=== PATIENT | female | born 1950 | race Caucasian/White ===

== ENCOUNTER → 2017-05-12 | Outpatient (CLI) | payer MEDICARE, BC ==
--- NOTE | 2017-05-13 12:01 | MM ---
Reason for exam: screening (asymptomatic). Last mammogram was performed 1 year ago. History: Patient is postmenopausal. Took estrogen for 10 years. Physical Findings: A clinical breast exam by your physician is recommended on an annual basis and results should be correlated with mammographic findings. MG 3D Screening Mammo W/Cad Bilateral CC and MLO view(s) were taken. Prior study comparison: May 03, 2016, bilateral MG 3d screening mammo w/cad. October 08, 2014, bilateral MG diagnostic mammo w CAD ANA. There are scattered fibroglandular densities. No significant changes when compared with prior studies. ASSESSMENT: Benign, BI-RAD 2 RECOMMENDATION: Routine screening mammogram of both breasts in 1 year.
== END | disposition home or self-care (01) ==
LOC: RADMAMWWP 13:34
PROVIDERS: ATTEND Internal Medicine
DX: Z12.31 Encounter for screening mammogram for malignant neoplasm of breast (principal)
CPT/HCPCS: 77063; G0202

== ENCOUNTER → 2018-07-07 | Outpatient (CLI) | payer MEDICARE, BC ==
--- NOTE | 2018-07-17 11:15 | MM ---
Reason for exam: screening (asymptomatic). Last mammogram was performed 1 year and 2 months ago. History: Patient is postmenopausal. Took estrogen for 10 years. Physical Findings: A clinical breast exam by your physician is recommended on an annual basis and results should be correlated with mammographic findings. MG 3D Screening Mammo W/Cad Bilateral CC and MLO view(s) were taken. Prior study comparison: May 12, 2017, bilateral MG 3d screening mammo w/cad. May 03, 2016, bilateral MG 3d screening mammo w/cad. No suspicious abnormality. No significant changes when compared with prior studies. ASSESSMENT: Negative, BI-RAD 1 RECOMMENDATION: Routine screening mammogram of both breasts in 1 year.
== END | disposition home or self-care (01) ==
LOC: RADMAMWWP 10:07
PROVIDERS: ATTEND Internal Medicine
DX: Z12.31 Encounter for screening mammogram for malignant neoplasm of breast (principal)
CPT/HCPCS: 77063; 77067

== ENCOUNTER → 2019-07-27 | Outpatient (CLI) | payer MEDICARE, BC ==
--- NOTE | 2019-07-31 09:14 | MM ---
Reason for exam: screening (asymptomatic). Last mammogram was performed 1 year and 1 month ago. History: Patient is postmenopausal. Took estrogen for 10 years. Physical Findings: A clinical breast exam by your physician is recommended on an annual basis and results should be correlated with mammographic findings. MG 3D Screening Mammo W/Cad Bilateral CC and MLO view(s) were taken. Prior study comparison: July 07, 2018, bilateral MG 3d screening mammo w/cad. May 12, 2017, bilateral MG 3d screening mammo w/cad. There are scattered fibroglandular densities. No suspicious abnormality. No significant changes when compared with prior studies. ASSESSMENT: Negative, BI-RAD 1 RECOMMENDATION: Routine screening mammogram of both breasts in 1 year.
== END | disposition home or self-care (01) ==
LOC: RADMAMWWP 10:15
PROVIDERS: ATTEND Internal Medicine
DX: Z12.31 Encounter for screening mammogram for malignant neoplasm of breast (principal)
CPT/HCPCS: 77063; 77067

== ENCOUNTER → 2019-08-24 | Outpatient (CLI) | payer MEDICARE, BC ==
--- NOTE | 2019-08-26 13:18 | BD ---
EXAMINATION TYPE: Axial Bone Density DATE OF EXAM: 08/24/2019 COMPARISON: 05.25.2016 CLINICAL HISTORY: 69 YR OLD FEMALE....ICD-10 CODE: M81.0 KNOWN OSTEOPOROSIS Height: 62.5 Weight: 179 FRAX RISK QUESTIONS: History of Fracture in Adulthood: YES 3. Menopause before 45: AT AGE 46 RISK FACTORS HISTORY OF: HX OF FOOT FX AT AGE 51 History of Wrist Fracture: RT WRIST FX, AT AGE 35 YRS OLD Surgery to Spine FUSION, L4 AND L5, MAY 07, 2019 Family History of Osteoporosis: YES HER MOTHER Postmenopausal woman: YES AT ABOUT AGE 46 Lost more than 2 inches in height since high school: YES Hyperparathyroidism: NO Adrenal Insufficiency: NO MEDICATIONS: Additional Medications: BP MEDS, ANTIDEPRESSANTS, STATIN FOR CHOLESTEROL, Additional History: HYPERTENSION, CHOLESTEROL EXAM MEASUREMENTS: Bone mineral densitometry was performed using the [employer] System. LUMBAR SPINAL FUSION, SPINE NOT SCANNED Bone mineral density about the R hip (g/cm2): 0.745 Bone mineral density about the L hip (g/cm2): 0.781 T Score values are as follows: -----R Neck: -2.4 -----L Neck: -2.7 -----R Total: -2.1 -----L Total: -1.8 Bone mineral density has: Decreased -6.5% since study of: 05.25.2016 FRAX%s: THERE IS A 23.4% CHANCE FOR A MAJOR OSTEOPOROTIC FX AND A 6.1% FOR HIP.....PROBABILITY FOR FX IN 10 YRS TIME Bone mineral density about the L Wrist (g/cm2): 0.469 T Score values are as follows: -----Dist. R+U: -3.7 -----Prox. R+U: -2.2 -----Radius total: -3.3 Bone mineral density FIRST SCAN OF FOREARM IMPRESSION: Osteoporosis (T Score less than -2.5). There is increased fracture risk and therapy is usually indicated based on age. Re-Screen 1-2 years. NOTE: T-SCORE=SD OF THE YOUNG ADULT MEAN.
== END | disposition home or self-care (01) ==
LOC: RADBDWWP 14:27
PROVIDERS: ATTEND Internal Medicine
DX: M81.0 Age-related osteoporosis without current pathological fracture (principal)
CPT/HCPCS: 77080

== ENCOUNTER → 2019-08-29 | Outpatient (CLI) | payer MEDICARE, BC ==
[~2019-08-29] MED LIST: DENOSUMAB 60 MG/ML 1 ML SYRINGE SQ ONE
[2019-08-29 13:58] VITALS: BP 140/88; PULSE 75; RESP 16; TEMP 97.6
== END ==
LOC: PROCWHC3 13:18
PROVIDERS: ATTEND Internal Medicine
DX: M81.0 Age-related osteoporosis without current pathological fracture (principal)
CPT/HCPCS: 96372; J0897

== ENCOUNTER → 2019-09-11 | Outpatient (CLI) | payer MEDICARE, BC ==
--- NOTE | 2019-09-12 07:36 | US ---
EXAMINATION TYPE: US carotid duplex BILAT DATE OF EXAM: 09/11/2019 COMPARISON: NONE CLINICAL HISTORY: I65.23 Carotid Stenosis. Stenosis, pt has no complaints at this time EXAM MEASUREMENTS: RIGHT: Peak Systolic Velocity (PSV) cm/sec ----- Right CCA: 64.3 ----- Right ICA: 82.2 ----- Right ECA: 77.8 ICA/CCA ratio: 1.3 RIGHT: End Diastole cm/sec ----- Right CCA: 21.5 ----- Right ICA: 28.2 ----- Right ECA: 12.8 LEFT: Peak Systolic Velocity (PSV) cm/sec ----- Left CCA: 66.0 ----- Left ICA: 100.9 ----- Left ECA: 94.1 ICA/CCA ratio: 1.5 LEFT: End Diastole cm/sec ----- Left CCA: 22.3 ----- Left ICA: 40.3 ----- Left ECA: 17.6 VERTEBRALS (direction of flow): Right Vertebral: Antegrade Left Vertebral: Antegrade Rhythm: Normal No significant stenosis seen Some minimal atheromatous plaquing may be within the proximal right internal carotid artery. IMPRESSION: No significant flow-limiting stenosis bilateral carotid bifurcations. Criteria for Assigning % of Stenosis / Diameter reduction (Estimation based on the indirect measurements of the internal carotid artery velocities (ICA PSV). 1. Normal (no stenosis)=ICA PSV < 125 cm/s: ratio < 2.0: ICA EDV<40 cm/s. 2. Less than 50% stenosis=ICA PSV < 125 cm/s: ratio < 2.0: ICA EDV<40 cm/s. 3. 50 to 69% stenosis=ICA PSV of 125 to 230 cm/s: ration 2.0 ? 4.0: ICA EDV 40-100 cm/s. 4. Greater than 70% stenosis to near occlusion= ICA PSV > 230 cm/s: ratio > 4.0: ICA EDV > 100 cm/s. 5. Near occlusion= ICA PSV velocities may be low or undetectable: variable ratio and ICA EDV. 6. Total occlusion=unable to detect flow.
== END | disposition home or self-care (01) ==
LOC: RADUSWWP 16:05
PROVIDERS: ATTEND Internal Medicine
DX: I65.23 Occlusion and stenosis of bilateral carotid arteries (principal)
CPT/HCPCS: 93880

== ENCOUNTER → 2020-04-23 | Outpatient (CLI) | payer MEDICARE, BC ==
[~2020-04-23] MED LIST changes: +DENOSUMAB 60 MG/ML 1 ML SYRINGE SQ NR; -DENOSUMAB 60 MG/ML 1 ML SYRINGE SQ ONE
[2020-04-23 13:57] VITALS: BP 127/74; PULSE 88; RESP 16; TEMP 97.3
== END | disposition home or self-care (01) ==
LOC: PROCWHC3 13:27
PROVIDERS: ATTEND Internal Medicine
DX: M81.0 Age-related osteoporosis without current pathological fracture (principal)
CPT/HCPCS: 96372; J0897

== ENCOUNTER → 2020-04-23 | Outpatient (CLI) | payer MEDICARE, BC ==
[2020-04-23 11:26] LABS: Basophils # (A) 0.1 k/uL (0-0.2); Basophils % (A) 1 %; Eosinophils # (A) 0.2 k/uL (0-0.7); Eosinophils % (A) 3 %; HCT 47.6 % (34.0-46.0); HGB 14.8 gm/dL (11.4-16.0); Hypochromasia Slight; Lymphocytes % (A) 32 %; MCH 28.2 pg (25.0-35.0); MCHC 31.2 g/dL (31.0-37.0); MCV 90.5 fL (80.0-100.0); Mean Platelet Volume 8.7; Monocytes # (A) 0.5 k/uL (0-1.0); Monocytes % (A) 7 %; Neutrophils # (A) 3.4 k/uL (1.3-7.7); Neutrophils % (A) 54 %; Platelet Count 261 k/uL (150-450); RBC 5.26 m/uL (3.80-5.40); RDW 14.1 % (11.5-15.5); WBC 6.3 k/uL (3.8-10.6)
[2020-04-23 15:53] LABS: African American GFR (CKD) 75.6 (60.0-200.0); Albumin 4.5 g/dL (3.80-4.90); Albumin/Globulin Ratio 2.14 (1.60-3.17); Anion Gap 8.4 mmol/L (4.00-12.00); Calcium 9.4 mg/dL (8.7-10.3); Carbon Dioxide 23.6 mmol/L (21.6-31.8); Globulin 2.1 g/dL (1.6-3.3); Non-African American GFR(CKD) 65.2 (60.0-200.0); Potassium 4.4 mmol/L (3.5-5.5); Total Bilirubin 0.5 mg/dL (0.2-1.2); Total Protein 6.6 g/dL (6.2-8.2)
== END | disposition home or self-care (01) ==
LOC: LABWHC1 10:07
PROVIDERS: ATTEND Internal Medicine
DX: I10 Essential (primary) hypertension (principal); E78.2 Mixed hyperlipidemia
CPT/HCPCS: 36415; 80053; 80061; 84443; 85025

== ENCOUNTER → 2020-07-29 | Outpatient (CLI) | payer MEDICARE, BC ==
--- NOTE | 2020-07-30 10:16 | MM ---
Reason for exam: screening (asymptomatic). Last mammogram was performed 1 year ago. History: Patient is postmenopausal. Took estrogen for 10 years. Physical Findings: A clinical breast exam by your physician is recommended on an annual basis and results should be correlated with mammographic findings. MG 3D Screening Mammo W/Cad Bilateral CC and MLO view(s) were taken. Prior study comparison: July 27, 2019, bilateral MG 3d screening mammo w/cad. July 07, 2018, bilateral MG 3d screening mammo w/cad. The breast tissue is heterogeneously dense. This may lower the sensitivity of mammography. There is no discrete abnormality. No significant changes when compared with prior studies. ASSESSMENT: Negative, BI-RAD 1 RECOMMENDATION: Routine screening mammogram of both breasts in 1 year.
== END | disposition home or self-care (01) ==
LOC: RADMAMWWP 10:03
PROVIDERS: ATTEND Internal Medicine
DX: Z12.31 Encounter for screening mammogram for malignant neoplasm of breast (principal)
CPT/HCPCS: 77063; 77067

== ENCOUNTER 2021-04-23 07:34 | Day surgery (SDC) | payer MEDICARE, BC ==
[2021-04-21 12:22] VITALS: BMI 28.6
--- NOTE | 2021-04-23 06:34 | P.GSHP ---
History of Present Illness H&P Date: 04/18/21 Chief Complaint: Right flank discomfort The patient is a 71-year-old white female with a history of urolithiasis. She was recently hospitalized at [facility] with sepsis of urinary origin. A urine culture showed an E. coli UTI. Computed tomography scan showed an 8 mm right distal ureteral calculus, as well as small right renal calculi. She underwent right ureteral stent insertion on 04/01/2021 and has been treated with antibiotics. She now comes for removal of her stent, ureteroscopy with laser lithotripsy. - Constitutional Constitutional: Denies chills, Denies fever - Gastrointestinal Gastrointestinal: Denies nausea, Denies vomiting - Genitourinary (Female) Genitourinary: Reports flank pain, Reports kidney stones Past Medical History Additional Past Medical History / Comment(s): Osteoporosis. Burning Mouth Syndrome History of Any Multi-Drug Resistant Organisms: None Reported Past Surgical History: Hysterectomy, Orthopedic Surgery Additional Past Surgical History / Comment(s): Back surgery - L4/5 fusion. Left great toe cut off at age 14 - reconstruct / Left thigh Skin Graft Past Anesthesia/Blood Transfusion Reactions: No Reported Reaction Past Psychological History: Depression - Past Family History Father Family Medical History: Cancer Medications and Allergies Home Medications Medication Instructions Recorded Confirmed Type Atorvastatin [Lipitor] 20 mg PO DAILY 04/21/21 04/21/21 History Butalb/APAP/Caff 50-325-40Mg 1 tab PO Q4H PRN 04/21/21 04/21/21 History [Fioricet 50-325-40] Clindamycin HCl 300 mg PO Q12HR 04/21/21 04/21/21 History Gabapentin [Neurontin] 400 mg PO QID 04/21/21 04/21/21 History Loratadine [Claritin] 10 mg PO DAILY 04/21/21 04/21/21 History Montelukast [Singulair] 10 mg PO DAILY 04/21/21 04/21/21 History Venlafaxine HCl [Effexor] 75 mg PO DAILY 04/21/21 04/21/21 History lisinopriL [Zestril] 5 mg PO DAILY 04/21/21 04/21/21 History metFORMIN HCL [Glucophage] 500 mg PO AC-SUPPER 04/21/21 04/21/21 History Allergies Allergy/AdvReac Type Severity Reaction Status Date / Time erythromycin base Allergy Rash/Hives Verified 04/21/21 12:00 Penicillins Allergy Rash/Hives Verified 04/21/21 12:00 Surgical - Exam - General well developed, well nourished, no distress - Neck no masses, trachea midline - Respiratory normal respiratory effort - Abdomen Abdomen: soft, non tender, no guarding, no rigid, no rebound - Genitourinary normal external genitalia, normal perineum - Psychiatric oriented to time, oriented to person, oriented to place, speech is normal, memory intact Results - Imaging CT scan - abdomen: report reviewed, image reviewed Assessment and Plan (1) Calculus of kidney Status: Acute Code(s): N20.0 - CALCULUS OF KIDNEY SNOMED Code(s): 84280020 (2) Calculus of ureter Status: Acute Code(s): N20.1 - CALCULUS OF URETER SNOMED Code(s): 80938922 Plan: Cystoscopy, right ureteral stent removal, right ureteroscopy with Holmium laser lithotripsy. The procedure has been reviewed in detail with the patient and her . They are aware of potential risks, which include anesthesia, bleeding, infection, ureteral injury, and inability to remove all calculi.
[~2021-04-23 07:34] MED LIST changes: -DENOSUMAB 60 MG/ML 1 ML SYRINGE SQ NR; +DEXAMETHASONE SOD PHOSPHATE 4 MG/ML 1 ML VIAL IV ONE; +LACTATED RINGERS 1,000 ML IV SCH; +ONDANSETRON 4 MG/2 ML VIAL IVP ONE
[2021-04-23 08:20] LABS: Glucose,Whole Blood 126 mg/dL (75-99)
[2021-04-23] MEDS ORDERED: LIDOCAINE 1% (10MG/ML) FOR IV START INTRADERMA ONE (08:20)
--- NOTE | 2021-04-23 08:20 | XR ---
EXAMINATION TYPE: XR KUB DATE OF EXAM: 04/23/2021 7:46 AM CLINICAL HISTORY: Kidney stones in right kidney and urinary bladder TECHNIQUE: Single supine KUB image of the abdomen is obtained. COMPARISON: 09/18/2013. CT abdomen and pelvis [phone] FINDINGS: Right ureteral stent is seen. There are multiple, at least 4, distal right ureteral calculi with the largest most distal calculus measuring 9 mm. Probable left pelvic phlebolith. Stool and gas obscure visualization of the renal contours. There are likely 2 tiny right renal calculi measuring u p to 2 mm. No definite evidence of left renal calculi or ureteral calculi on the left. Fixation hardw are at L4-5. Degenerative changes of the hips. IMPRESSION: 1. Right ureteral stent with multiple right distal ureteral calcifications (approximately 4) with the largest measuring 9 mm. 2. Stool and gas obscure visualization of the right renal contour. At least 2 tiny 2 mm right uretera l calculi.
[2021-04-23] MEDS ORDERED: NEOSTIGMINE 1 MG/ML 10 ML VIAL ONE (10:04)
[2021-04-23] MEDS ORDERED: ROCURONIUM 10 MG/ML (5 ML VIAL) IV ONE (10:04)
[2021-04-23] MEDS ORDERED: SUCCINYLCHOLINE CHLORIDE 100 MG/5 ML SYR IV ONE (10:04)
[2021-04-23] MEDS ORDERED: KETOROLAC 15 MG/ML 1 ML VIAL ONE (10:04)
[2021-04-23] MEDS ORDERED: PROPOFOL 10 MG/ML 20 ML VIAL IV ONE (10:04)
[2021-04-23] MEDS ORDERED: GLYCOPYRROLATE 0.2 MG/ML 2 ML VIAL ONE (10:04)
[2021-04-23] MEDS ORDERED: fentaNYL (PF) 50 MCG/ML 2 ML AMP ONE (10:04)
[2021-04-23] MEDS ORDERED: LIDOCAINE 1% INJ 10MG/ML (20 ML MDV) ONE (10:04)
[2021-04-23] MEDS ORDERED: MIDAZOLAM 2 MG/2 ML VIAL ONE (10:04)
[2021-04-23] MEDS ORDERED: LACTATED RINGERS 1,000 ML IV ONE (11:15)
--- NOTE | 2021-04-23 11:30 | P.OP ---
Date of Procedure: 04/23/21 Preoperative Diagnosis: Right ureteral calculus, right renal calculi Postoperative Diagnosis: Same Procedure(s) Performed: Cystoscopy, right ureteral stent removal, right ureteroscopy with Holmium laser lithotripsy and stone basketing Anesthesia: TETE Surgeon: Darien Lehman Estimated Blood Loss (ml): 0 IV fluids (ml): 900 Pathology: other (Calculus fragments, sent for chemical analysis) Condition: stable Disposition: PACU Indications for Procedure: The patient is a 71-year-old white female with a history of urolithiasis. She was recently hospitalized at [facility] with sepsis of urinary origin. A urine culture showed an E. coli UTI. Computed tomography scan showed an 8 mm right distal ureteral calculus, as well as small right renal calculi. She underwent right ureteral stent insertion on 04/01/2021 and has been treated with antibiotics. She now comes for removal of her stent, ureteroscopy with laser lithotripsy. Operative Findings: Right distal ureteral calculus, fragmented and removed completely. Multiple small right renal calculi, successfully fragmented. Description of Procedure: The patient was taken to the operating room and placed in the dorsolithotomy position, with legs supported in Shaun stirrups. The external genitalia was prepped and draped sterilely. The 30 lens was used to introduce the 21-St Helenian Batres cystoscopic sheath through the urethra and into the bladder under direct vision. The bladder was examined in its entirety. The distal end of the right ureteral stent was grasped with grasping forceps and removed along with the cystoscope. The Batres semirigid ureteroscope was advanced into the bladder, and the right ureteral orifice was cannulated. The ureteroscope was advanced up to the distal ureteral calculus. The 200 micron Holmium laser probe was passed through the ureteroscope, and lithotripsy was performed. After fragmenting the calculus, all calculus fragments were removed using a 1.9-St Helenian nitinol basket. The semirigid ureteroscope was removed, and the bulla flexible ureteroscope was advanced into the bladder. The right ureteral orifice was cannulated, and the ureteroscope was slowly advanced under direct vision. No residual calculi were seen within the ureter. Each calyx was examined. Multiple small calculi were seen, the largest measuring 3 mm within a mid pole calyx. All were fragmented, leaving no residual calculus fragments exceeding the size of the laser fiber tip. The ureteroscope was slowly withdrawn under direct vision. There was no evidence of ureteral trauma. After removing the ureteroscope, the cystoscope was passed into the bladder and the calculus fragments were removed from the bladder. They were sent for chemical analysis. The patient tolerated the procedure well and was taken to the recovery room in stable condition. [facility] Report: Procedure Acuity: Elective Stone Size and Location: 8 mm, right distal ureter. Ureteral Dilation: No Ureteral Access Sheath Used: No Stone Sent for Analysis: Yes All Stones/Fragments Were Removed with a Basket: Yes Complications: No Preoperative Antibiotics Given: Yes Stent Placed: No Discharge Medications: None
[2021-04-23 11:41] VITALS: TEMP 98.5
[2021-04-23] MEDS: HYDROmorphone 0.5 MG/0.5 ML SYRINGE IVP PRN ×2 (11:55→12:00)
[2021-04-23 12:41] VITALS: BP 1119/61; PULSE 62; RESP 16
== END 2021-04-23 13:19 | disposition home or self-care (01) ==
LOC: OR 07:34
PROVIDERS: ATTEND Urology
DX: N20.2 Calculus of kidney with calculus of ureter (principal); K14.6 Glossodynia; I10 Essential (primary) hypertension; E78.5 Hyperlipidemia, unspecified; E11.9 Type 2 diabetes mellitus without complications; M81.0 Age-related osteoporosis without current pathological fracture; Z98.1 Arthrodesis status; Z89.419 Acquired absence of unspecified great toe; Z98.890 Other specified postprocedural states; F32.9 Major depressive disorder, single episode, unspecified; Z80.9 Family history of malignant neoplasm, unspecified; Z90.710 Acquired absence of both cervix and uterus; Z79.84 Long term (current) use of oral hypoglycemic drugs; Z79.899 Other long term (current) drug therapy; Z88.1 Allergy status to other antibiotic agents; Z88.0 Allergy status to penicillin
CPT/HCPCS: 52353; 82365; 74018; J2250; J1100; J2710; J0690; J2405; J2001; J3010; J1885; J0330; J2704; J1170

== ENCOUNTER → 2021-04-29 | Outpatient (CLI) | payer MEDICARE, BC ==
[~2021-04-29] MED LIST changes: +DENOSUMAB 60 MG/ML 1 ML SYRINGE SQ NR; -DEXAMETHASONE SOD PHOSPHATE 4 MG/ML 1 ML VIAL IV ONE; -LACTATED RINGERS 1,000 ML IV SCH; -ONDANSETRON 4 MG/2 ML VIAL IVP ONE
[2021-04-29 09:55] VITALS: BP 154/90; PULSE 73; RESP 16; TEMP 98.1
== END | disposition home or self-care (01) ==
LOC: PROCWHC3 09:27
PROVIDERS: ATTEND Internal Medicine
DX: M81.0 Age-related osteoporosis without current pathological fracture (principal)
CPT/HCPCS: 96372; J0897

== ENCOUNTER → 2021-09-01 | Outpatient (CLI) | payer MEDICARE, BC ==
--- NOTE | 2021-09-03 10:35 | MM ---
Reason for exam: screening (asymptomatic). Last mammogram was performed 1 year and 1 month ago. History: Patient is postmenopausal. Took estrogen for 10 years. Physical Findings: A clinical breast exam by your physician is recommended on an annual basis and results should be correlated with mammographic findings. MG 3D Screening Mammo W/Cad Bilateral CC and MLO view(s) were taken. Prior study comparison: July 29, 2020, bilateral MG 3d screening mammo w/cad. July 27, 2019, bilateral MG 3d screening mammo w/cad. There are scattered fibroglandular densities. No significant changes when compared with prior studies. ASSESSMENT: Benign, BI-RAD 2 RECOMMENDATION: Routine screening mammogram of both breasts in 1 year.
== END | disposition home or self-care (01) ==
LOC: RADMAMWWP 12:23
PROVIDERS: ATTEND Internal Medicine
DX: Z12.31 Encounter for screening mammogram for malignant neoplasm of breast (principal)
CPT/HCPCS: 77063; 77067

== ENCOUNTER → 2022-04-05 | Outpatient (CLI) | payer MEDICARE, BC ==
[2022-04-05 10:22] VITALS: BP 139/83; PULSE 91; RESP 16; TEMP 98
== END ==
LOC: PROCWHC3 10:00
PROVIDERS: ATTEND Internal Medicine
DX: M81.0 Age-related osteoporosis without current pathological fracture (principal); Z88.0 Allergy status to penicillin; Z88.1 Allergy status to other antibiotic agents
CPT/HCPCS: 96372; J0897

== ENCOUNTER → 2022-09-01 | Outpatient (CLI) | payer MEDICARE, BC ==
--- NOTE | 2022-09-01 11:49 | XR ---
EXAMINATION TYPE: XR chest 2V DATE OF EXAM: 09/01/2022 8:20 AM COMPARISON: None TECHNIQUE: XR chest 2V Frontal and lateral views of the chest. CLINICAL INDICATION:Female, 72 years old with history of R05.3 CHRONIC COUGH; FINDINGS: Lungs/Pleura: There is no evidence of pleural effusion, focal consolidation, or pneumothorax. Pulmonary vascularity: Unremarkable. Heart/mediastinum: Cardiomediastinal silhouette is unremarkable. Musculoskeletal: No acute osseous pathology. IMPRESSION: No acute cardiopulmonary disease/process.
== END | disposition home or self-care (01) ==
LOC: RADXRMAIN 10:59
PROVIDERS: ATTEND Internal Medicine
DX: R05.3 Chronic cough (principal)
CPT/HCPCS: 71046

== ENCOUNTER → 2022-09-09 | Outpatient (CLI) | payer MEDICARE, BC ==
--- NOTE | 2022-09-10 13:26 | MM ---
Reason for Exam: Screening (asymptomatic). Last screening mammogram was performed 12 month(s) ago. Patient History: Menarche at age 14. First Full-Term at age 21. Left ovary removed at age 48. Right ovary removed at age 48. Hysterectomy at age 48. Postmenopausal. Patient has history of breast feeding. Estrogen for 10 years until age 61. Risk Values: Fawn 5 year model risk: 1.6%. NCI Lifetime model risk: 4.3%. Prior Study Comparison: 07/27/2019 Bilateral Screening Mammogram, [facility]. 07/29/2020 Bilateral Screening Mammogram, [facility]. 09/01/2021 Bilateral Screening Mammogram, [facility]. Tissue Density: There are scattered fibroglandular densities. Findings: Analyzed By CAD. There is no suspicious group of microcalcifications or new suspicious mass in either breast. Overall Assessment: Negative, BI-RAD 1 Management: Screening Mammogram of both breasts in 1 year. 1. Patient should continue monthly self breast exams. 2. A clinical breast exam by your physician is recommended on an annual basis. 3. This exam should not preclude additional follow-up of suspicious palpable abnormalities. Electronically signed and approved by: Sandra Crawford M.D. Radiologist
== END | disposition home or self-care (01) ==
LOC: RADMAMWWP 15:41
PROVIDERS: ATTEND Internal Medicine
DX: Z12.31 Encounter for screening mammogram for malignant neoplasm of breast (principal); Z78.0 Asymptomatic menopausal state
CPT/HCPCS: 77063; 77067

== ENCOUNTER → 2023-04-27 | Outpatient (CLI) | payer MEDICARE, BC ==
--- NOTE | 2023-04-27 19:00 | BD ---
EXAMINATION TYPE: Axial Bone Density DATE OF EXAM: 04/27/2023 CLINICAL HISTORY: 73 years old Female. ICD-10 CODE: M81.0 AGE RELATED OSTEOPROSIS Height: 5 ft 4 in Weight: 186 FRAX RISK QUESTIONS: Alcohol (3 or more units per day): no Family History (Parent hip fracture): no Glucocorticoids (More than 3mos): no (Ex: prednisone, prednisolone, methylprednisolone, dexamethasone, and hydrocortisone). History of Fracture in Adulthood: yes Secondary Osteoporosis: 1. Type 1 Diabetes: no 2. Hyperthyroidism: no 3. Menopause before 45: yes 4. Malnutrition: no 5. Chronic liver disease: no Rheumatoid Arthritis: no Current Tobacco Use: no RISK FACTORS HISTORY OF: Surgery to Spine/Hip(right/left)/Wrist (right/left): lumbar surg When: 6 years ago Family History of Osteoporosis: yes Active: yes Diet low in dairy products/other sources of calcium: no Postmenopausal woman: yes Take estrogen and/or progesterone medications: none now Lost more than 2 inches in height since high school: no Frequent falls: no Poor Health: good Hyperparathyroidism: no Adrenal Insufficiency: kidney stones MEDICATIONS: Additional Medications: ozembic, gabapentin, montelukast, mounjoro, myrbetriq,Atorvastatin, loratadin e, venlafaxine, losartan Additional History: EXAM MEASUREMENTS: Bone mineral density about the R hip (g/cm2): 0.694 Bone mineral density about the L hip (g/cm2): 0.713 T Score values are as follows: -----R Neck: -2.5 -----L Neck: -2.3 -----R Total: -1.9 -----L Total: -1.7 Z Score values are as follows: -----R Neck: -0.8 -----L Neck: -0.6 -----R Total: -1.1 -----L Total: -1.0 Bone mineral density has: increased 1.7 % since study of: 2019 Bone mineral density about the L Wrist (g/cm2): 0.499 T Score values are as follows: -----Dist. R+U: -3.9 -----Prox. R+U: -2.1 -----Radius total: -2.9 Z Score values are as follows: -----Dist. R+U: -1.9 -----Prox. R+U: -0.1 -----Radius total: -0.9 Bone mineral density has: increased 1.6 % since study of: 2019 FRAX%s: The graph provided illustrates a 22.6% chance for a major osteoporotic fx and a 5.9 % chance for the hips probability for fx in 10 years time. IMPRESSION: Osteoporosis (T Score less than -2.5). There is increased fracture risk and therapy is usually indicated based on age. Re-Screen 1-2 years. NOTE: T-SCORE=SD OF THE YOUNG ADULT MEAN.
== END | disposition home or self-care (01) ==
LOC: RADBDWWP 16:13
PROVIDERS: ATTEND Internal Medicine
DX: M81.0 Age-related osteoporosis without current pathological fracture (principal); M85.89 Other specified disorders of bone density and structure, multiple sites
CPT/HCPCS: 77080

== ENCOUNTER → 2023-07-06 | Outpatient (CLI) | payer MEDICARE, BC ==
[2023-07-06 13:27] VITALS: BP 136/73; PULSE 75; RESP 15; TEMP 97.4
== END ==
LOC: PROCWHC3 13:17
PROVIDERS: ATTEND Internal Medicine
DX: M81.0 Age-related osteoporosis without current pathological fracture (principal)
CPT/HCPCS: 96372; J0897

== ENCOUNTER → 2023-09-12 | Outpatient (CLI) | payer MEDICARE ==
--- NOTE | 2023-09-14 09:18 | MM ---
Reason for Exam: Screening (asymptomatic). Last screening mammogram was performed 12 month(s) ago. Patient History: Menarche at age 14. First Full-Term at age 21. Left ovary removed at age 48. Right ovary removed at age 48. Hysterectomy at age 48. Postmenopausal. Patient has history of breast feeding. Estrogen for 10 years until age 61. Risk Values: Fawn 5 year model risk: 1.6%. NCI Lifetime model risk: 4.1%. Prior Study Comparison: 07/29/2020 Bilateral Screening Mammogram, [facility]. 09/01/2021 Bilateral Screening Mammogram, [facility]. 09/09/2022 Bilateral MG 3D screening mammo w/cad, [facility]. Tissue Density: The breast tissue is heterogeneously dense. This may lower the sensitivity of mammography. Findings: Analyzed By CAD. There is no suspicious group of microcalcifications or new suspicious mass in either breast. Overall Assessment: Benign, BI-RAD 2 Management: Screening Mammogram of both breasts in 1 year. . Patient should continue monthly self-breast exams. A clinical breast exam by your physician is recommended on an annual basis. This exam should not preclude additional follow-up of suspicious palpable abnormalities. Note on Fawn scores and lifetime risk: 1. A Fawn score greater than 3% is considered moderate risk. If this is the case, consider specialist referral to assess eligibility for a risk reducing agent. 2. If overall lifetime risk for the development of breast cancer is 20% or higher, the patient may qualify for future screening with alternating mammogram and breast MRI. Electronically signed and approved by: Amando Mata M.D. Radiologis
== END | disposition home or self-care (01) ==
LOC: RADMAMWWP 10:07
PROVIDERS: ATTEND Internal Medicine
DX: Z12.31 Encounter for screening mammogram for malignant neoplasm of breast (principal); Z78.0 Asymptomatic menopausal state
CPT/HCPCS: 77063; 77067

== ENCOUNTER → 2024-03-22 | Outpatient (CLI) | payer MEDICARE ==
--- NOTE | 2024-03-27 17:30 | CT ---
EXAMINATION TYPE: CT abdomen pelvis wo con CT DLP: 1064 mGycm, Automated exposure control for dose reduction was used. DATE OF EXAM: 03/22/2024 12:58 PM COMPARISON: CT abdomen pelvis most recent from CLINICAL INDICATION:Female, 74 years old with history of R10.9 UNSPECIFIED ABDOMINAL PAIN; RIGHT FLAN K PAIN TECHNIQUE: Axial CT abdomen pelvis wo con;Sagittal and coronal reformats were created on a separate workstation. Contrast used: mL of , (none if empty) Oral contrast used: without Oral Contrast (none if empty) FINDINGS: LOWER CHEST: Unremarkable ABDOMEN LIVER: Benign-appearing right lobe liver cyst GALLBLADDER AND BILE DUCTS: Unremarkable. PANCREAS: Unremarkable. SPLEEN: Unremarkable. ADRENAL GLANDS: Unremarkable. KIDNEYS AND URETERS: No evidence of hydronephrosis. There are 4 small left nephroliths. The ureters a re unremarkable. Streak metal artifact obscures distal third of the ureters. PELVIS BLADDER: Unremarkable Several phleboliths identified. REPRODUCTIVE: Unremarkable. ABDOMEN & PELVIS STOMACH AND BOWEL: Stomach and duodenum are unremarkable. No evidence of bowel obstruction. PERITONEUM/RETROPERITONEUM: No evidence of pneumoperitoneum or free fluid. VASCULATURE: No evidence of aortic aneurysm. MUSCULOSKELETAL: No acute osseous abnormalities LYMPH NODES: No gross evidence for lymphadenopathy. SOFT TISSUE/ABDOMINAL WALL: Unremarkable IMPRESSION: 1. There are 4 small left nephroliths. No right kidney calculi identified. 2. No definite evidence of obstructive uropathy or acute process otherwise.
== END | disposition home or self-care (01) ==
LOC: RADCTMAIN 12:32
PROVIDERS: ATTEND Internal Medicine
DX: N20.0 Calculus of kidney (principal)
CPT/HCPCS: 74176

== ENCOUNTER → 2024-08-15 | Outpatient (CLI) | payer MEDICARE ==
[2024-08-15 14:02] VITALS: BP 149/88; PULSE 86; RESP 16; TEMP 97.8
[2024-08-15] MEDS: DENOSUMAB 60 MG/ML 1 ML SYRINGE SQ ONE (14:03)
== END | disposition home or self-care (01) ==
LOC: PROCWHC3 13:53
PROVIDERS: ATTEND Internal Medicine
DX: M81.0 Age-related osteoporosis without current pathological fracture (principal)
CPT/HCPCS: 96372; J0897

== ENCOUNTER → 2024-09-13 | Outpatient (CLI) | payer MEDICARE ==
--- NOTE | 2024-09-13 10:56 | MM ---
Reason for Exam: Screening (asymptomatic). Last screening mammogram was performed 12 month(s) ago. Patient History: Menarche at age 14. First Full-Term at age 21. Left ovary removed at age 48. Right ovary removed at age 48. Hysterectomy at age 48. Postmenopausal. Patient has history of breast feeding. Estrogen for 10 years until age 61. Risk Values: Fawn 5 year model risk: 1.6%. NCI Lifetime model risk: 3.9%. Prior Study Comparison: 09/01/2021 Bilateral Screening Mammogram, [facility]. 09/09/2022 Bilateral MG 3D screening mammo w/cad, [facility]. 09/12/2023 Bilateral MG 3D screening mammo w/cad, [facility]. Tissue Density: The breasts are heterogeneously dense, which may obscure small masses. Findings: Analyzed By CAD. There is no suspicious group of microcalcifications or new suspicious mass in either breast. Overall Assessment: Benign, BI-RAD 2 Management: Screening Mammogram of both breasts in 1 year. . Patient should continue monthly self-breast exams. A clinical breast exam by your physician is recommended on an annual basis. This exam should not preclude additional follow-up of suspicious palpable abnormalities. Note on Fawn scores and lifetime risk: 1. A Fawn score greater than 3% is considered moderate risk. If this is the case, consider specialist referral to assess eligibility for a risk reducing agent. 2. If overall lifetime risk for the development of breast cancer is 20% or higher, the patient may qualify for future screening with alternating mammogram and breast MRI. [facility], , 09/13/2024 10:53 AM. Electronically signed and approved by: Eligio Garner M.D. Radiologis
== END | disposition home or self-care (01) ==
LOC: RADMAMWWP 09:51
PROVIDERS: ATTEND Internal Medicine
CPT/HCPCS: 77063; 77067

== ENCOUNTER → 2025-04-15 | Outpatient (CLI) | payer MEDICARE ==
[2025-04-15] MEDS: DENOSUMAB 60 MG/ML 1 ML SYRINGE SQ NR (13:16)
[2025-04-15 13:18] VITALS: BP 147/74; PULSE 83; RESP 16; TEMP 97.6
== END ==
LOC: PROCWHC3 13:01
PROVIDERS: ATTEND Internal Medicine
DX: M81.0 Age-related osteoporosis without current pathological fracture (principal)
CPT/HCPCS: 96372; J0897

== ENCOUNTER → 2025-06-10 | Outpatient (CLI) | payer MEDICARE ==
--- NOTE | 2025-06-10 17:47 | XR ---
EXAMINATION TYPE: XR KUB DATE OF EXAM: 06/10/2025 1:30 PM COMPARISON: 04/23/2021 CLINICAL INDICATION: Female, 75 years old with history of R10.9 UNSPECIFIED ABDOMINAL PAIN; PHH, pain TECHNIQUE: One radiographic view of the abdomen was obtained. FINDINGS: Moderate stool burden. No dilated small bowel loops. L4-L5 posterior and interbody lumbar f usion. Multiple pelvic phleboliths. Lung bases are clear. IMPRESSION: Multiple pelvic phleboliths. Moderate stool burden. Nonobstructive bowel gas pattern. [facility], Workstation: [facility], 06/10/2025 5:45 PM
== END | disposition home or self-care (01) ==
LOC: RADXRMAIN 13:10
PROVIDERS: ATTEND Internal Medicine
DX: R10.9 Unspecified abdominal pain (principal); I87.8 Other specified disorders of veins
CPT/HCPCS: 74018

== ENCOUNTER → 2025-06-19 | Outpatient (CLI) | payer MEDICARE ==
--- NOTE | 2025-06-19 14:26 | US ---
EXAMINATION TYPE: US carotid duplex BILAT DATE OF EXAM: 06/19/2025 COMPARISON: US CLINICAL INDICATION: Female, 75 years old with history of I65.23 CAROTID STENOSIS; Stenosis Additional History: .... TECHNIQUE: Grayscale, color Doppler and spectral Doppler evaluation of the bilateral carotid systems and vertebral arteries. Indirect Doppler criteria was utilized. FINDINGS: EXAM MEASUREMENTS: RIGHT: Peak Systolic Velocity (PSV) cm/sec ----- Right CCA: 95.2 ----- Right ICA: 73.8 ----- Right ECA: 87.5 ICA/CCA ratio: 0.8 RIGHT: End Diastole cm/sec ----- Right CCA: 20.4 ----- Right ICA: 25.8 ----- Right ECA: 13.8 LEFT: Peak Systolic Velocity (PSV) cm/sec ----- Left CCA: 70.3 ----- Left ICA: 113.4 ----- Left ECA: 107.3 ICA/CCA ratio: 1.6 LEFT: End Diastole cm/sec ----- Left CCA: 18.8 ----- Left ICA: 50.0 ----- Left ECA: 18.2 VERTEBRALS (direction of flow): Right Vertebral: Antegrade Left Vertebral: Antegrade Rhythm: Normal [employer] NOTES: No significant stenosis seen Color Doppler imaging shows patency with blood flow throughout the carotid artery. Spectral waveforms are within normal limits. IMPRESSION: No significant flow-limiting stenosis based on velocities. Some minimal plaquing is in the left carot id bulb. Criteria for Assigning % of Stenosis / Diameter reduction (Estimation based on the indirect measurements of the internal carotid artery velocities (ICA PSV). 1. Normal (no stenosis)=ICA PSV < 180 cm/s: ratio < 2.0: ICA EDV<40 cm/s. 2. Less than 50% stenosis=ICA PSV < 180 cm/s: ratio < 2.0: ICA EDV<40 cm/s. 3. 50 to 69% stenosis=ICA PSV of 180 to 230 cm/s: ration 2.0 ? 4.0: ICA EDV 40-100 cm/s. PSV 125-180 cm/sec and ICA/CCA PSV Ratio ? 2.0 is also consistent with 50-69% stenosis 4. Greater than 70% stenosis to near occlusion= ICA PSV > 230 cm/s: ratio > 4.0: ICA EDV > 100 cm/s. 5. Near occlusion= ICA PSV velocities may be low or undetectable: variable ratio and ICA EDV. 6. Total occlusion=unable to detect flow. [facility], Workstation: [facility], 06/19/2025 2:24 PM
--- NOTE | 2025-06-20 13:53 | CA ---
Transthoracic Echo Report Name: Jordana Jo Age: 75 Gender: F : 1950 Exam Date: 06/19/2025 13:04 Exam Location: [facility] Ht (in): 65 Wt (lb): 183 Ordering Physician: Antwan Medina MD Attending/Referring Phys: Director Emergency Aviva Moreno RDCS Procedure CPT: Indications: I34.0 mitral valve regurgition Cardiac Hx: Technical Quality: Fair Contrast 1: Total Dose (mL): Contrast 2: Total Dose (mL): MEASUREMENTS (Male / Female) Normal Values 2D ECHO LV Diastolic Diameter PLAX 3.3 cm 4.2 - 5.9 / 3.9 - 5.3 cm LV Systolic Diameter PLAX 2.3 cm IVS Diastolic Thickness 1.1 cm 0.6 - 1.0 / 0.6 - 0.9 cm LVPW Diastolic Thickness 1.2 cm 0.6 - 1.0 / 0.6 - 0.9 cm LV Relative Wall Thickness 0.7 RV Internal Dim ED PLAX 3.0 cm LA Systolic Diameter LX 3.3 cm 3.0 - 4.0 / 2.7 - 3.8 cm LV Diastolic Volume MOD BP 50.5 cm??? 67 - 155 / 56 - 104 cm??? LV Systolic Volume MOD BP 17.7 cm??? 22 - 58 / 19 - 49 cm??? LV Ejection Fraction MOD BP 64.9 % >= 55 % LV Cardiac Index MOD BP 1094.3 cm???/min???m??? LV Diastolic Volume MOD 4C 50.3 cm??? LV Systolic Volume MOD 4C 15.9 cm??? LV Ejection Fraction MOD 4C 68.3 % LV Cardiac Index MOD 4C 1146.1 cm???/min???m??? LV Diastolic Length 4C 8.0 cm LV Systolic Length 4C 5.8 cm LV Diastolic Volume MOD 2C 43.8 cm??? LV Systolic Volume MOD 2C 19.2 cm??? LV Ejection Fraction MOD 2C 56.2 % LV Cardiac Index MOD 2C 821.5 cm???/min???m??? LV Diastolic Length 2C 6.8 cm LV Systolic Length 2C 6.2 cm M-MODE Aortic Root Diameter MM 3.2 cm AV Cusp Separation MM 1.6 cm DOPPLER AV Peak Velocity 134.1 cm/s AV Peak Gradient 7.2 mmHg AV Mean Velocity 94.6 cm/s AV Mean Gradient 3.8 mmHg AV Velocity Time Integral 23.4 cm LVOT Peak Velocity 118.2 cm/s LVOT Peak Gradient 5.6 mmHg LVOT Velocity Time Integral 21.7 cm MV Area PHT 2.4 cm??? Mitral E Point Velocity 50.6 cm/s Mitral A Point Velocity 75.2 cm/s Mitral E to A Ratio 0.7 MV Deceleration Time 312.8 ms TR Peak Velocity 205.6 cm/s TR Peak Gradient 16.9 mmHg Right Ventricular Systolic Press 21.9 mmHg FINDINGS Left Ventricle Left ventricular ejection fraction is estimated at 55-60 %. Left ventricular cavity size normal. Mildly increased septal wall thickness. Mildly increased posterior wall thickness. Normal left ventricular wall motion. Right Ventricle Normal right ventricular size. Right ventricular systolic pressure within normal limits. Right Atrium Normal right atrial size. No right atrial thrombus or mass seen. Left Atrium Normal left atrial size. No left atrial thrombus or mass present. Mitral Valve Structurally normal mitral valve. No mitral stenosis, regurgitation or prolapse. Aortic Valve Trileaflet aortic valve. No aortic valve stenosis or regurgitation. Tricuspid Valve Structurally normal tricuspid valve. Trace to mild tricuspid regurgitation. Pulmonic Valve Pulmonic valve not well visualized. Trace pulmonic regurgitation. Pericardium No pericardial effusion. small amount of epicardial fat noticed Aorta Normal size aortic root and proximal ascending aorta. CONCLUSIONS LVEF 55% Mild concentric LVH No obvious regional wall motion abnormality Normal RV size and systolic function No significant valvular dysfunction Previewed by: Dr Jeff Wilson (Electronically Signed) Final Date: 19 June 2025 18:27
== END | disposition home or self-care (01) ==
LOC: RADECHMAIN 12:51
PROVIDERS: ATTEND Internal Medicine
DX: I34.0 Nonrheumatic mitral (valve) insufficiency (principal); M81.0 Age-related osteoporosis without current pathological fracture; I65.23 Occlusion and stenosis of bilateral carotid arteries; I07.1 Rheumatic tricuspid insufficiency
CPT/HCPCS: 93306; 93880

== ENCOUNTER 2025-06-24 14:53 | Observation (INO) | payer MEDICARE ==
--- NOTE | 2025-06-24 15:14 | ED ---
Abdominal Pain HPI - General Chief Complaint: Abdominal Pain Stated Complaint: Urogenital Time Seen by Provider: 06/24/25 14:59 Source: patient, RN notes reviewed Mode of arrival: ambulatory Limitations: no limitations - History of Present Illness Initial Comments: This is a 75-year-old female who presents to the emergency department for abdominal pain. States that on 05/28 she began experiencing suprapubic pain. She feels fine in the morning and then as the day progresses and she is up walking around the pain gets worse. Pain is not prominent when she is laying down, only when she is moving around. She followed up with her PCP when this first began. She was told that she had a UTI and she was very constipated. She cleaned out the constipation and took antibiotics for the UTI. When she followed back up she was told that the urine was clear. However, she continues to be in pain. She does still have pain when she urinates, but states that it is worse when she is moving. Her PCP did a pelvic exam and was worried that the problems were related to her bladder. They ordered an ultrasound of the bladder, however states that she is unable to wait due to the pain, prompting her to come here for evaluation. Denies any nausea or vomiting associated with this. Denies any fevers/chills. MD Complaint: abdominal pain - Related Data Home Medications Medication Instructions Recorded Confirmed Loratadine [Claritin] 10 mg PO HS 04/21/21 06/24/25 Montelukast [Singulair] 10 mg PO DAILY 04/21/21 06/24/25 Atorvastatin [Lipitor] 40 mg PO DAILY 06/24/25 06/24/25 Dulaglutide [Trulicity] 3 mg SQ ARIAS 06/24/25 06/24/25 EPINEPHrine (Auto Inject) [Epipen] 0.3 mg IM ONCE PRN 06/24/25 06/24/25 Erenumab-Aooe [Aimovig 140 mg SQ Q30D 06/24/25 06/24/25 Autoinjector] Ezetimibe [Zetia] 10 mg PO DAILY 06/24/25 06/24/25 Losartan [Cozaar] 50 mg PO DAILY 06/24/25 06/24/25 Mirabegron [Myrbetriq] 25 mg PO HS 06/24/25 06/24/25 Pregabalin [Lyrica] 75 mg PO BID 06/24/25 06/24/25 Sodium Fluoride 5000 Dry Mouth 1 applic PO BID 06/24/25 06/24/25 1.1% Paste Ubrogepant [Ubrelvy] 100 mg PO BID PRN 06/24/25 06/24/25 Venlafaxine HCl ER [Effexor Xr] 150 mg PO DAILY 06/24/25 06/24/25 Allergies Allergy/AdvReac Type Severity Reaction Status Date / Time erythromycin base Allergy Rash/Hives Verified 06/24/25 17:58 Penicillins Allergy Rash/Hives Verified 06/24/25 17:58 Review of Systems ROS Statement: Those systems with pertinent positive or pertinent negative responses have been documented in the HPI. ROS Other: All systems not noted in ROS Statement are negative. Past Medical History Past Medical History: Diabetes Mellitus, Eye Disorder, Hyperlipidemia, Hypertension Additional Past Medical History / Comment(s): Osteoporosis. 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 BILAT CATARACTS. SEPSIS POST UROLOGY PROCEDURE D/T KIDNEY STONES. History of Any Multi-Drug Resistant Organisms: None Reported Past Surgical History: Back Surgery, Bladder Surgery, Hysterectomy, Orthopedic Surgery Additional Past Surgical History / Comment(s): Back surgery - L4/5 fusion. Left great toe cut off at age 14 - reconstruct / Left thigh Skin Graft. COLONOSCOPY Past Anesthesia/Blood Transfusion Reactions: No Reported Reaction Past Psychological History: Depression Smoking Status: Never smoker Past Alcohol Use History: None Reported Past Drug Use History: None Reported - Past Family History Father Family Medical History: Cancer General Exam Limitations: no limitations General appearance: alert, in no apparent distress Head exam: Present: atraumatic, normocephalic, normal inspection Respiratory exam: Present: normal lung sounds bilaterally. Absent: respiratory distress, wheezes, rales, rhonchi, stridor Cardiovascular Exam: Present: regular rate, normal rhythm GI/Abdominal exam: Present: soft, tenderness (Suprapubic). Absent: distended Neurological exam: Present: alert, oriented X3, CN II-XII intact Psychiatric exam: Present: normal affect, normal mood Skin exam: Present: warm, dry, intact, normal color. Absent: rash Course Vital Signs 06/24/25 06/24/25 06/24/25 14:54 19:03 20:00 Temperature 97.4 F L Pulse Rate 91 70 66 Respiratory 20 20 18 Rate Blood Pressure 143/99 142/78 144/88 O2 Sat by Pulse 96 97 97 Oximetry 06/24/25 06/24/25 06/24/25 21:00 22:00 22:51 Temperature Pulse Rate 76 80 76 Respiratory 18 18 18 Rate Blood Pressure 135/68 148/82 124/98 O2 Sat by Pulse 97 97 97 Oximetry Medical Decision Making - Medical Decision Making This is a 75 year old female who presents to the emergency department for abdominal pain. Was pt. sent in by a medical professional or institution? @ -No Did you speak to anyone other than the patient for history? @ -No Did you review nursing and triage notes? @ -Yes, and I agree, it is accurate with regards to the patient's symptoms. Were old charts reviewed? @ -No Differential Diagnosis? @ -Differential Abdominal Pain Women: Appendicitis, Cholecystitis, diverticulosis, ischemic bowel, pancreatitis, hepatitis, UTI, gastroenteritis, AAA, incarcerated hernia, bowel obstruction, constipation, inflammatory bowel, hepatitis, peptic ulcer disease, splenic infarction, perforated viscus, vulvitis, ovarian torsion, PID, kidney stone, placenta abruption, this is not meant to be an all-inclusive list EKG interpreted by me (3pts min.)? @ -Not obtained X-rays interpreted by me (1pt min.)? @ -Not obtained CT interpreted by me (1pt min.)? @ -CT scan of the abdomen and pelvis obtained. My interpretation identifies left ureteral calculi. U/S interpreted by me (1pt. min.)? @ -Not obtained What testing was considered but not performed? (CT, X-rays, U/S, labs)? Why? @ -None What meds were considered but not given? Why? @ -None Did you discuss the management of the patient with other professionals? @ -Yes, Dr. Lehman, urology, who is agreeable to see the patient on consult. Dr. Medina accepts the patient for admission. Did you reconcile home meds? @ -Yes Was smoking cessation discussed for >3mins.? @ -No Was critical care preformed (if so, how long)? @ -No Were there social determinants of health that impacted care today? How? (Homelessness, low income, unemployed, alcoholism, drug addiction, transportation, low edu. Level, literacy, decrease access to med. care, long-term, r ehab)? @ -No Was there de-escalation of care discussed even if they declined? (Discuss DNR or withdrawal of care, Hospice)? @ -No What co-morbidities impacted this encounter? (DM, HTN, Smoking, COPD, CAD, Cancer, CVA, Hep., AIDS, mental health diagnosis, sleep apnea, morbid obesity)? @ -DM, HLD, HTN Was patient admitted / discharged? @ -Admitted. Lab work demonstrates an elevated lipase of 1624 and is otherwise unremarkable. Urinalysis demonstrates a minor elevation in WBCs but is not overly suggestive of infection. CT scan of the abdomen and pelvis demonstrates mild to moderate left hydroureteronephrosis with 3 obstructing calculi in the distal left ureter. These are measuring 6 mm, 4 mm, and 10 mm. There is also a 5 mm calculus in the bladder representing a recently passed calculus. Findings reviewed with the patient. While the lipase is elevated, it is unlikely to be the cause of most of her symptoms. She has tenderness in the left upper quadrant when palpated. However, pain is most likely related to the 3 obstructing calculi. She does have a history of kidney stones requiring lith otripsy. Given the duration of her symptoms, level of discomfort, and 3 calculi, patient was admitted to medicine for further management. Case discussed with urology who is agreeable to seeing the patient for consult and discussing further management options. Patient admitted to medicine for left ureteral calculus and hydronephrosis. Case discussed with ED attending Dr. Cheung. Undiagnosed new problem with uncertain prognosis? @ -None Drug Therapy requiring intensive monitoring for toxicity (Heparin, Nitro, Insulin, Cardizem)? @ -None Were any procedures done? @ -None Diagnosis/symptom? @ -Left ureteral calculi, hydronephrosis Acute, or Chronic, or Acute on Chronic? @ -Acute Uncomplicated (without systemic symptoms) or Complicated (systemic symptoms)? @ -Complicated Side effects of treatment? @ -None Exacerbation, Progression, or Severe Exacerbation] @ -Not applicable Poses a threat to life or bodily function? @ -Yes, the pain is limiting her ability to function - Lab Data Result diagrams: 06/24/25 15:45 06/24/25 15:45 Lab Results 06/24/25 06/24/25 06/24/25 Range/Units 15:45 15:45 15:45 WBC 7.05 (4.50-10.00) 10*3/uL RBC 4.85 (4.10-5.20) 10*6/uL Hgb 14.4 (12.0-15.0) g/dL Hct 43.5 (37.2-46.3) % MCV 89.7 (80.0-97.0) fL MCH 29.7 (27.0-32.0) pg MCHC 33.1 (32.0-37.0) g/dL Plt Count 254 (140-440) 10*3/uL MPV 11.7 (9.5-12.2) fL Immature Gran % (Auto) 0.3 % Neutrophils % 59.3 % Lymphocytes % 27.1 % Monocytes % 8.9 % Eosinophils % 3.5 % Basophils % 0.9 % Immature Gran # 0.02 (0.00-0.04) 10*3/uL Neutrophils # 4.18 (1.80-7.70) 10*3/uL Lymphocytes # 1.91 (0.90-5.00) 10*3/uL Monocytes # 0.63 (0.20-1.00) 10*3/uL Eosinophils # 0.25 (0.04-0.35) 10*3/uL Basophils # 0.06 (0.00-0.10) 10*3/uL Sodium 141 (137-145) mmol/L Potassium 4.4 (3.5-5.1) mmol/L Chloride 106 (98-107) mmol/L Carbon Dioxide 30 (22-30) mmol/L Anion Gap 5 mmol/L BUN 21 H (7-17) mg/dL Creatinine 0.99 (0.52-1.04) mg/dL Est GFR (CKD-EPI)AfAm 65 (>60 ml/min/1.73 sqM) Est GFR (CKD-EPI)NonAf 57 (>60 ml/min/1.73 sqM) Glucose 104 H (74-99) mg/dL Plasma Lactic Acid Isaac 1.1 (0.7-2.0) mmol/L Calcium 9.0 (8.4-10.2) mg/dL Total Bilirubin 0.5 (0.2-1.3) mg/dL AST 26 (14-36) U/L ALT 26 (4-34) U/L Alkaline Phosphatase 105 (38-126) U/L Total Protein 6.7 (6.3-8.2) g/dL Albumin 4.3 (3.5-5.0) g/dL Amylase 80 (30-110) U/L Lipase 1624 H (23-300) U/L Urine Color Urine Appearance (Clear) Urine pH (5.0-8.0) Ur Specific Loving (1.001-1.035) Urine Protein (Negative) Urine Glucose (UA) (Negative) Urine Ketones (Negative) Urine Blood (Negative) Urine Nitrite (Negative) Urine Bilirubin (Negative) Urine Urobilinogen (<2.0) mg/dL Ur Leukocyte Esterase (Negative) Urine RBC (0-5) /hpf Urine WBC (0-5) /hpf Ur Squamous Epith Cells (0-4) /hpf Amorphous Sediment (None) /hpf Urine Bacteria (None) /hpf 06/24/25 Range/Units 16:35 WBC (4.50-10.00) 10*3/uL RBC (4.10-5.20) 10*6/uL Hgb (12.0-15.0) g/dL Hct (37.2-46.3) % MCV (80.0-97.0) fL MCH (27.0-32.0) pg MCHC (32.0-37.0) g/dL Plt Count (140-440) 10*3/uL MPV (9.5-12.2) fL Immature Gran % (Auto) % Neutrophils % % Lymphocytes % % Monocytes % % Eosinophils % % Basophils % % Immature Gran # (0.00-0.04) 10*3/uL Neutrophils # (1.80-7.70) 10*3/uL Lymphocytes # (0.90-5.00) 10*3/uL Monocytes # (0.20-1.00) 10*3/uL Eosinophils # (0.04-0.35) 10*3/uL Basophils # (0.00-0.10) 10*3/uL Sodium (137-145) mmol/L Potassium (3.5-5.1) mmol/L Chloride (98-107) mmol/L Carbon Dioxide (22-30) mmol/L Anion Gap mmol/L BUN (7-17) mg/dL Creatinine (0.52-1.04) mg/dL Est GFR (CKD-EPI)AfAm (>60 ml/min/1.73 sqM) Est GFR (CKD-EPI)NonAf (>60 ml/min/1.73 sqM) Glucose (74-99) mg/dL Plasma Lactic Acid Isaac (0.7-2.0) mmol/L Calcium (8.4-10.2) mg/dL Total Bilirubin (0.2-1.3) mg/dL AST (14-36) U/L ALT (4-34) U/L Alkaline Phosphatase (38-126) U/L Total Protein (6.3-8.2) g/dL Albumin (3.5-5.0) g/dL Amylase (30-110) U/L Lipase (23-300) U/L Urine Color Light Yellow Urine Appearance Cloudy H (Clear) Urine pH 8.5 H (5.0-8.0) Ur Specific Loving 1.016 (1.001-1.035) Urine Protein Negative (Negative) Urine Glucose (UA) Negative (Negative) Urine Ketones Negative (Negative) Urine Blood Negative (Negative) Urine Nitrite Negative (Negative) Urine Bilirubin Negative (Negative) Urine Urobilinogen <2.0 (<2.0) mg/dL Ur Leukocyte Esterase Trace H (Negative) Urine RBC 4 (0-5) /hpf Urine WBC 8 H (0-5) /hpf Ur Squamous Epith Cells 1 (0-4) /hpf Amorphous Sediment Occasional H (None) /hpf Urine Bacteria Rare H (None) /hpf - Radiology Data Radiology results: report reviewed, image reviewed Disposition Clinical Impression: Calculus of distal left ureter, Hydronephrosis, left Disposition: ADMITTED IP TO THIS HOSP
[2025-06-24 15:49] LABS: Basophils # (A) 0.06 10*3/uL (0.00-0.10); Basophils % (A) 0.9 %; Eosinophils # (A) 0.25 10*3/uL (0.04-0.35); Eosinophils % (A) 3.5 %; HCT 43.5 % (37.2-46.3); HGB 14.4 g/dL (12.0-15.0); Lymphocytes # (A) 1.91 10*3/uL (0.90-5.00); Lymphocytes % (A) 27.1 %; MCH 29.7 pg (27.0-32.0); MCHC 33.1 g/dL (32.0-37.0); MCV 89.7 fL (80.0-97.0); Monocytes # (A) 0.63 10*3/uL (0.20-1.00); Monocytes % (A) 8.9 %; Neutrophils # (A) 4.18 10*3/uL (1.80-7.70); Neutrophils % (A) 59.3 %; Platelet Count 254 10*3/uL (140-440); RBC 4.85 10*6/uL (4.10-5.20); RDW 14.2 % (11.5-14.5); WBC 7.05 10*3/uL (4.50-10.00)
[2025-06-24 16:06] LABS: ALT 26 U/L (4-34); AST 26 U/L (14-36); African American GFR (CKD) 65 (>60 ml/min/1.73 sqM); Albumin 4.3 g/dL (3.5-5.0); Alkaline Phosphatase 105 U/L (38-126); Amylase 80 U/L (30-110); Anion Gap 5 mmol/L; Blood Urea Nitrogen 21 mg/dL (7-17); Calcium 9.0 mg/dL (8.4-10.2); Carbon Dioxide 30 mmol/L (22-30); Chloride 106 mmol/L (98-107); Glucose 104 mg/dL (74-99); Lipase 1624 U/L (23-300); Non-African American GFR(CKD) 57 (>60 ml/min/1.73 sqM); Potassium 4.4 mmol/L (3.5-5.1); Sodium 141 mmol/L (137-145); Total Protein 6.7 g/dL (6.3-8.2)
[2025-06-24 16:54] LABS: Amorphous Sediment,Urine Occasional /hpf; Bacteria,Urine Rare /hpf; Bilirubin,Urine Negative (Negative); Blood,Urine Negative (Negative); Color,Urine Light Yellow; Glucose,Urine (UA) Negative (Negative); Ketones,Urine Negative (Negative); Leukocyte Esterase,Urine Trace (Negative); Nitrite,Urine Negative (Negative); PH, Urine 8.5 (5.0-8.0); Protein,Urine Negative (Negative); RBC,Urine 4 /hpf (0-5); Specific Gravity,Urine 1.016 (1.001-1.035); Squamous Epithelial Cell,Urine 1 /hpf (0-4); Urobilinogen,Urine <2.0 mg/dL (<2.0); WBC,Urine 8 /hpf (0-5)
--- NOTE | 2025-06-24 17:19 | CT ---
EXAMINATION TYPE: CT abdomen pelvis w con CT DLP: 1199.5 mGycm, Automated exposure control for dose reduction was used. DATE OF EXAM: 06/24/2025 5:05 PM COMPARISON: CT abdomen pelvis 03/22/2024 CLINICAL INDICATION:Female, 75 years old with history of Lower abdominal pain; Mid, lower abdominal p ain for 3 months TECHNIQUE: Standard CT of the abdomen and pelvis following the administration of 100 cc of Isovue 3 00 IV contrast material. Coronal and sagittal reformats were performed. FINDINGS: LOWER CHEST: Elevation of the left hemidiaphragm. Minimal bilateral lower lobe dependent subsegmental atelectasis. ABDOMEN LIVER: Inferior right hepatic lobe 3.5 cm simple appearing cyst. Additional subcentimeter right hepat ic lobe cyst adjacent to the gallbladder fossa. GALLBLADDER AND BILE DUCTS: Unremarkable. PANCREAS: Unremarkable. SPLEEN: Unremarkable. ADRENAL GLANDS: Unremarkable. KIDNEYS AND URETERS: No right-sided hydronephrosis. Nonobstructing right renal upper pole 4 mm calcul us. No right-sided hydroureter calculus. Mild to moderate left hydroureteronephrosis with 3 obstructi ng calculi within the distal left ureter. The most distal calculus at the ureterovesical junction tino sures up to 6 mm. There is a 4 mm calculus adjacent to this more proximally. Additionally there is a 1 cm linear calculus within the distal left ureter. The kidneys enhance symmetrically. No periuretera l or perinephric fat stranding identified. Contrast is demonstrated within both collecting systems on the delayed phase. PELVIS BLADDER: Underdistended with a 5 mm calculus within the left posterior urinary bladder. REPRODUCTIVE: The uterus is surgically absent. ABDOMEN & PELVIS STOMACH AND BOWEL: Stomach and duodenum are unremarkable. Sigmoid diverticulosis without evidence for acute diverticulitis. No focal bowel wall thickening or surrounding inflammatory changes. The append ix is within normal limits. The cecum is identified within the right pelvis. No evidence of bowel obs truction. PERITONEUM: No evidence of pneumoperitoneum or free fluid. VASCULATURE: Mild atherosclerotic calcifications are present throughout the abdominal aorta and its b ranches. No evidence of aortic aneurysm. Multiple pelvic phleboliths. MUSCULOSKELETAL: No acute osseous abnormalities. Postsurgical changes from posterior lumbar fusion at L4-L5 with intervertebral disc hardware. LYMPH NODES: No evidence for lymphadenopathy. SOFT TISSUE/ABDOMINAL WALL: Unremarkable IMPRESSION: 1. Mild to moderate left hydroureteronephrosis with 3 obstructing calculi within the distal left ure ter. There are 2 adjacent to each other within the distal left ureter at the ureterovesical junction. The most distal obstructing calculus measures up to 6 mm. Additionally there is a 5 mm calculus with in the urinary bladder which likely represents a recently passed calculus. 2. Nonobstructing right renal calculus. 3. Sigmoid diverticulosis without evidence for acute diverticulitis. [facility], , 06/24/2025 5:17 PM
[2025-06-24] MEDS: SODIUM CHLORIDE 0.9% 1,000 ML IV ONE (17:45)
[2025-06-24] MEDS: KETOROLAC 15 MG/ML 1 ML VIAL IVP STA (17:46)
[2025-06-24] MEDS ORDERED: ACETAMINOPHEN TAB 325 MG TAB PO PRN (19:11)
[2025-06-24] MEDS ORDERED: NALOXONE 0.4 MG/ML 1 ML VIAL IV PRN (19:11)
[2025-06-24] MEDS ORDERED: MORPHINE SULFATE 4 MG/ML SYRINGE IV PRN (19:11)
[2025-06-24] MEDS ORDERED: ONDANSETRON 4 MG/2 ML VIAL IVP PRN (19:11)
[2025-06-24] MEDS ORDERED: PATIENT'S OWN (Ubrogepant [Ubrelvy] 100 MG Tablet) PO PRN (19:12)
[2025-06-24] MEDS: TAMSULOSIN 0.4 MG CAP.ER.24H PO STA (19:36)
[2025-06-24] MEDS: SODIUM CHLORIDE 0.9% 1,000 ML IV SCH (19:36)
[2025-06-24] MEDS: LORATADINE 10 MG TAB PO SCH (20:22)
[2025-06-24] MEDS: PREGABALIN 75 MG CAP PO SCH (20:22)
[2025-06-24] MEDS: SODIUM FLUORIDE PO SCH (20:38)
[2025-06-24] MEDS: [UNRECOGNIZED DRUG - OTHER] PO SCH (20:38)
[2025-06-24] MEDS: PATIENT'S OWN (Mirabegron [Myrbetriq] 25 MG Tab.Er.24h) PO SCH (20:38)
[2025-06-24] MEDS: KETOROLAC 15 MG/ML 1 ML VIAL IVP PRN (23:35)
[2025-06-25] MEDS ORDERED: ONDANSETRON 4 MG/2 ML VIAL IVP PRN (06:13)
[2025-06-25 06:34] LABS: Basophils # (A) 0.06 10*3/uL (0.00-0.10); Basophils % (A) 1.1 %; Eosinophils # (A) 0.25 10*3/uL (0.04-0.35); Eosinophils % (A) 4.6 %; HCT 38.8 % (37.2-46.3); HGB 12.6 g/dL (12.0-15.0); Lymphocytes # (A) 1.47 10*3/uL (0.90-5.00); Lymphocytes % (A) 26.9 %; MCH 29.5 pg (27.0-32.0); MCHC 32.5 g/dL (32.0-37.0); MCV 90.9 fL (80.0-97.0); Monocytes # (A) 0.48 10*3/uL (0.20-1.00); Monocytes % (A) 8.8 %; Neutrophils # (A) 3.19 10*3/uL (1.80-7.70); Neutrophils % (A) 58.2 %; Platelet Count 211 10*3/uL (140-440); RBC 4.27 10*6/uL (4.10-5.20); RDW 14.2 % (11.5-14.5); WBC 5.47 10*3/uL (4.50-10.00)
[2025-06-25 06:44] LABS: ALT 19 U/L (4-34); AST 23 U/L (14-36); African American GFR (CKD) 81 (>60 ml/min/1.73 sqM); Albumin 3.3 g/dL (3.5-5.0); Albumin/Globulin Ratio 1.5; Alkaline Phosphatase 86 U/L (38-126); Anion Gap 4 mmol/L; Blood Urea Nitrogen 18 mg/dL (7-17); Calcium 7.5 mg/dL (8.4-10.2); Carbon Dioxide 25 mmol/L (22-30); Chloride 110 mmol/L (98-107); Globulin 2.2 g/dL; Glucose 87 mg/dL (74-99); Non-African American GFR(CKD) 70 (>60 ml/min/1.73 sqM); Potassium 4.5 mmol/L (3.5-5.1); Sodium 139 mmol/L (137-145); Total Protein 5.5 g/dL (6.3-8.2)
[2025-06-25] MEDS: EZETIMIBE 10 MG TAB PO SCH (08:08)
[2025-06-25] MEDS: LOSARTAN 50 MG TAB PO SCH (08:08)
[2025-06-25] MEDS: MONTELUKAST 10 MG TAB PO SCH (08:08)
[2025-06-25] MEDS: PANTOPRAZOLE 40 MG/10 ML VIAL IV SCH (08:08)
[2025-06-25] MEDS: ATORVASTATIN 40 MG TAB PO SCH (08:08)
[2025-06-25] MEDS: ENOXAPARIN 40 MG/0.4 ML SYRINGE SQ SCH (08:10)
[2025-06-25] MEDS: VENLAFAXINE HCL ER 150 MG CAP PO SCH (08:52)
--- NOTE | 2025-06-25 09:59 | P.HPIM ---
History of Present Illness H&P Date: 06/25/25 Chief Complaint: Abdominal pain/left ureteral stones with moderate hydroneph rosis HISTORY OF PRESENT ILLNESS: This is a 75-year-old female patient of mine with a previous medical history significant for hypertension and hypertensive cardiovascular disease, mixed hyperlipidemia, recurrent kidney stones, with a prior history of J stent placement and removal, allergic rhinitis, diabetes mellitus type 2, migraine headache, osteoporosis, constipation, patient presented to the emergency department at [facility] with increased abdominal pain associated with intractable nausea vomiting, she was found to have an elevated lipase, ended up going for a CT scan of the abdomen pelvis that showed evidence of obstructing stones in the left ureter with mild to moderate hydronephrosis there is also an additional 5 mm stone inside the bladder and nonobstructing stone in the right kidney, there was also diverticulosis without diverticulitis, she was started on IV fluid resuscitation, IV analgesia with morphine sulfate 4 mg IV push every 4 hours as well as ketorolac as, and she was started on Flomax 0.4 mg once every day, urology consultation was obtained for cystoscopy and J stent placement and lithotripsy. REVIEW OF SYSTEMS: Constitutional: No documented fever, no chills, no night sweats. No weight change. No weakness, fatigue or lethargy. No daytime sleepiness. EENT: occasional headache. No blurred vision or double vision, no loss of vision. No loss of Hearing, no ringing in the ears, no dizziness. No nasal drainage or congestion. No epistaxis. No sore throat. Lungs: No shortness of breath, no cough, no sputum production. No wheezing. Reports dyspnea with activity. Cardiovascular: No chest pain, no lower extremity edema. No palpitations. No paroxysmal nocturnal dyspnea. No orthopnea. No lightheadedness or dizziness. No syncopal episodes. Abdominal: Reports abdominal pain. positive for nausea, vomiting. No diarrhea. No constipation. No bloody or tarry stools reports loss of appetite. Genitourinary: No dysuria, increased frequency, urgency. No urinary retention, left flank pain Musculoskeletal: No myalgias. No muscle weakness, no gait dysfunction, no frequent falls. No back pain. No neck pain. Integumentary: No wounds, no lesions. No rash or pruritus. No unusual bruising. No change in hair or nails. Neurologic: No aphasia. No facial droop. No change in mentation. No head injury. No headache. No paralysis. No paresthesia. Psychiatric: mild depression. No anxiety. No mood swings. Endocrine: No abnormal blood sugars. No weight change. PAST MEDICAL HISTORY: Hypertension and hypertensive cardiovascular disease. Mixed hyperlipidemia. Recurrent kidney stones. Allergic rhinitis. Diabetes mellitus type 2. Intractable migraine headaches. Major depressive disorder. Mitral regurgitation. Osteoporosis. PAST SURGICAL HISTORY: Posterior lumbar discectomy with fusion 2018 Left big toe amputation Total hysterectomy 1996 Colonoscopy 2015 Right total knee arthroplasty 2020 Carpal tunnel syndrome times 01/17/2023 Colonoscopy 07/07/2024 Ganglionic cyst on the right foot 11/05/2024 SOCIAL HISTORY: Patient is a lifelong non-smoker, she denies any marijuana use or abuse, she drinks 1 to 2 cups of coffee every day, she drinks socially. She lives with her . FAMILY HISTORY: Father at age 69 from renal cancer mother at the age of 69 from coronary artery disease and COPD, patient has 2 brothers 1 committed suicide at the age of 25 and the other 1 with diabetes mellitus type 2, patient has 4 sisters 2 with diabetes and 1 COPD patient has 4 sons all but 1 with hypertension PHYSICAL EXAMINATION: General: 75-year-old female laying down in bed in minimal distress. HEENT: Head is atraumatic, normocephalic, pupils were equal round reactive to light and recommendation, extraocular muscle movement were intact, sclera nonicteric, conjunctivae were pale, mucous membranes of the mouth are somewhat dry. Neck: Supple, no JVP, normal carotid upstroke bilaterally, no lymphadenopathy. Chest: Decreased breath sounds at the bases, few rhonchi, no expiratory wheezes, no chest wall tenderness, no intercostal retractions. Heart: First heart sound is normal, second heart sounds normal there is systolic ejection murmur 2/6 located in the left sternal border. Abdomen: Soft, mild tenderness to the left flank area. Minimal tenderness to the epigastric area, nondistended, positive bowel sounds. Extremities: There is no edema no calf tenderness DP +2 bilaterally, left big toe amputation Neurologic examination: Patient is awake alert and oriented x3, cranial nerves II-12 appear grossly intact, muscle power were 5 out of 5 in upper extremities and 5 out of 5 in bilateral lower extremities, deep tendon reflexes normal bilaterally. ASSESSMENT AND PLAN: 1. Abdominal pain secondary to obstructing 3 stones of the left ureter with mild to moderate hydronephrosis. Continue IV fluid resuscitation, continue patient on current pain management, continue Flomax 0.4 mg once every day, urology consultation for cystoscopy with lithotripsy and J stent placement. 2. Elevated lipase without evidence of significant pancreatitis discontinue GLP-1 receptor agonist. Monitor the patient lipase, this is likely related to her abdominal pain follow-up with the patient very closely, continue pain management, continue IV fluid resuscitation, 3. Hypertension and hypertensive cardiovascular disease. Continue patient on losartan 50 mg orally once every day. 4. Mixed hyperlipidemia. Continue patient on atorvastatin 40 mg once every day, continue ezetimibe 10 mg once every day, monitor lipid panel, keep LDL 55- 70. 5. Diabetes mellitus type 2. Discontinue Trulicity for now, start the patient on sliding scale insulin. 6. History of migraine headaches. Currently on Aimovig 140 mg subcutaneously once every month. 7. Major depressive disorder. Continue venlafaxine 150 mg orally once every day. 8. Allergic rhinitis. Continue patient on loratadine 10 mg once every day as well as Flonase nasal spray 1 puff in each nostril twice every day, continue montelukast 10 mg at bedtime. 9. Mitral regurgitation. Echocardiogram is up-to-date. 10. Has bilateral carotid artery disease ultrasound of the carotids is up-to-date it showed mild IMT. 11. Chronic low back pain with peripheral neuropathy. Continue Lyrica 75 mg orally twice every day. 12. DVT prophylaxis. Continue patient on Lovenox 40 mg subcutaneous every 24 hours. Bilateral knee-high ALONDRA hose. 13. GI prophylaxis. Continue Protonix 40 mg orally once every day. 14. Admit to inpatient. Estimated length of stay 2 midnights. 15. Full code. Past Medical History Past Medical History: Diabetes Mellitus, Eye Disorder, Hyperlipidemia, Hypertension Additional Past Medical History / Comment(s): Osteoporosis. Burning Mouth Syndrome. BILAT CATARACTS. SEPSIS POST UROLOGY PROCEDURE D/T KIDNEY STONES. History of Any Multi-Drug Resistant Organisms: None Reported Past Surgical History: Back Surgery, Bladder Surgery, Hysterectomy, Orthopedic Surgery Additional Past Surgical History / Comment(s): Back surgery - L4/5 fusion. Left great toe cut off at age 14 - reconstruct / Left thigh Skin Graft. COLONOSCOPY. B knees Past Anesthesia/Blood Transfusion Reactions: No Reported Reaction Past Psychological History: Depression Smoking Status: Never smoker Past Alcohol Use History: None Reported Past Drug Use History: None Reported - Past Family History Father Family Medical History: Cancer Medications and Allergies Home Medications Medication Instructions Recorded Confirmed Type Loratadine [Claritin] 10 mg PO HS 04/21/21 06/24/25 History Montelukast [Singulair] 10 mg PO DAILY 04/21/21 06/24/25 History Atorvastatin [Lipitor] 40 mg PO DAILY 06/24/25 06/24/25 History Dulaglutide [Trulicity] 3 mg SQ ARIAS 06/24/25 06/24/25 History EPINEPHrine (Auto Inject) [Epipen] 0.3 mg IM ONCE PRN 06/24/25 06/24/25 History Erenumab-Aooe [Aimovig 140 mg SQ Q30D 06/24/25 06/24/25 History Autoinjector] Ezetimibe [Zetia] 10 mg PO DAILY 06/24/25 06/24/25 History Losartan [Cozaar] 50 mg PO DAILY 06/24/25 06/24/25 History Mirabegron [Myrbetriq] 25 mg PO HS 06/24/25 06/24/25 History Pregabalin [Lyrica] 75 mg PO BID 06/24/25 06/24/25 History Sodium Fluoride 5000 Dry Mouth 1 applic PO BID 06/24/25 06/24/25 History 1.1% Paste Ubrogepant [Ubrelvy] 100 mg PO BID PRN 06/24/25 06/24/25 History Venlafaxine HCl ER [Effexor Xr] 150 mg PO DAILY 06/24/25 06/24/25 History Allergies Allergy/AdvReac Type Severity Reaction Status Date / Time erythromycin base Allergy Rash/Hives Verified 06/24/25 17:58 Penicillins Allergy Rash/Hives Verified 06/24/25 17:58 Physical Exam Vitals: Vital Signs Temp Pulse Pulse Resp BP BP Pulse Ox 06/24/25 23:33 97.8 F 79 17 161/75 96 06/24/25 22:51 76 18 124/98 97 06/24/25 22:00 80 18 148/82 97 06/24/25 21:00 76 18 135/68 97 06/24/25 20:00 66 18 144/88 97 06/24/25 19:03 70 20 142/78 97 06/24/25 14:54 97.4 F L 91 20 143/99 96 Intake and Output 06/24/25 06/24/25 06/25/25 14:59 22:59 06:59 Other: Voiding Method Toilet # Voids 1 Weight 83.915 kg 83.915 kg Results CBC & Chem 7: 06/24/25 15:45 06/24/25 15:45 Labs: Abnormal Lab Results - Last 24 Hours (Table) 06/24/25 06/24/25 Range/Units 15:45 16:35 BUN 21 H (7-17) mg/dL Glucose 104 H (74-99) mg/dL Lipase 1624 H (23-300) U/L Urine Appearance Cloudy H (Clear) Urine pH 8.5 H (5.0-8.0) Ur Leukocyte Esterase Trace H (Negative) Urine WBC 8 H (0-5) /hpf Amorphous Sediment Occasional H (None) /hpf Urine Bacteria Rare H (None) /hpf Thrombosis Risk Factor Assmnt - Choose All That Apply Any of the Below Risk Factors Present?: Yes Each Factor Represents 1 point: Obesity (BMI >25) Other Risk Factors: Yes Each Risk Factor Represents 2 Points: Age 61-74 years Other congenital or acquired thrombophilia - If yes, enter type in comment: No Thrombosis Risk Factor Assessment Total Risk Factor Score: 3 Thrombosis Risk Factor Assessment Level: Moderate Risk
--- NOTE | 2025-06-25 11:47 | P.GSCN ---
History of Present Illness Consult date: 06/25/25 Reason for Consult: Left renal colic Requesting physician: Antwan Medina History of present illness: The patient is a 75-year-old white female with a history of urolithiasis. She has recently experienced suprapubic pain. She presented to the ER and underwent evaluation which included a CT scan, revealing mild to moderate left hydroureteronephrosis due to 3 left distal ureteral calculi. Review of Systems - Constitutional Denies chills, Denies fever - Gastrointestinal Denies nausea, Denies vomiting - Genitourinary Genitourinary: Reports flank pain, Reports kidney stones Past Medical History Past Medical History: Diabetes Mellitus, Eye Disorder, Hyperlipidemia, Hypertension Additional Past Medical History / Comment(s): Osteoporosis. Burning Mouth Syndrome. BILAT CATARACTS. SEPSIS POST UROLOGY PROCEDURE D/T KIDNEY STONES. History of Any Multi-Drug Resistant Organisms: None Reported Past Surgical History: Back Surgery, Bladder Surgery, Hysterectomy, Orthopedic Surgery Additional Past Surgical History / Comment(s): Back surgery - L4/5 fusion. Left great toe cut off at age 14 - reconstruct / Left thigh Skin Graft. COLONOSCOPY. B knees Past Anesthesia/Blood Transfusion Reactions: No Reported Reaction Past Psychological History: Depression Smoking Status: Never smoker Past Alcohol Use History: None Reported Past Drug Use History: None Reported - Past Family History Father Family Medical History: Cancer Medications and Allergies Home Medications Medication Instructions Recorded Confirmed Type Loratadine [Claritin] 10 mg PO HS 04/21/21 06/24/25 History Montelukast [Singulair] 10 mg PO DAILY 04/21/21 06/24/25 History Atorvastatin [Lipitor] 40 mg PO DAILY 06/24/25 06/24/25 History Dulaglutide [Trulicity] 3 mg SQ ARIAS 06/24/25 06/24/25 History EPINEPHrine (Auto Inject) [Epipen] 0.3 mg IM ONCE PRN 06/24/25 06/24/25 History Erenumab-Aooe [Aimovig 140 mg SQ Q30D 06/24/25 06/24/25 History Autoinjector] Ezetimibe [Zetia] 10 mg PO DAILY 06/24/25 06/24/25 History Losartan [Cozaar] 50 mg PO DAILY 06/24/25 06/24/25 History Mirabegron [Myrbetriq] 25 mg PO HS 06/24/25 06/24/25 History Pregabalin [Lyrica] 75 mg PO BID 06/24/25 06/24/25 History Sodium Fluoride 5000 Dry Mouth 1 applic PO BID 06/24/25 06/24/25 History 1.1% Paste Ubrogepant [Ubrelvy] 100 mg PO BID PRN 06/24/25 06/24/25 History Venlafaxine HCl ER [Effexor Xr] 150 mg PO DAILY 06/24/25 06/24/25 History Allergies Allergy/AdvReac Type Severity Reaction Status Date / Time erythromycin base Allergy Rash/Hives Verified 06/24/25 17:58 Penicillins Allergy Rash/Hives Verified 06/24/25 17:58 Surgical - Exam Vital Signs Temp Pulse Resp BP Pulse Ox 97.4 F L 91 20 143/99 96 06/24/25 14:54 06/24/25 14:54 06/24/25 14:54 06/24/25 14:54 06/24/25 14:54 - General well developed, well nourished, no distress - Respiratory normal respiratory effort - Abdomen Soft, non-distended, no mass. Mild suprapubic tenderness, no guarding or rebound. - Psychiatric oriented to time, oriented to person, oriented to place, speech is normal, memory intact Results - Labs 06/25/25 06:22 06/25/25 06:22 Abnormal Lab Results - Last 24 Hours (Table) 06/24/25 06/24/25 Range/Units 15:45 16:35 BUN 21 H (7-17) mg/dL Glucose 104 H (74-99) mg/dL Lipase 1624 H (23-300) U/L Urine Appearance Cloudy H (Clear) Urine pH 8.5 H (5.0-8.0) Ur Leukocyte Esterase Trace H (Negative) Urine WBC 8 H (0-5) /hpf Amorphous Sediment Occasional H (None) /hpf Urine Bacteria Rare H (None) /hpf Diabetes panel 06/24/25 Range/Units 15:45 Sodium 141 (137-145) mmol/L Potassium 4.4 (3.5-5.1) mmol/L Chloride 106 (98-107) mmol/L Carbon Dioxide 30 (22-30) mmol/L BUN 21 H (7-17) mg/dL Creatinine 0.99 (0.52-1.04) mg/dL Glucose 104 H (74-99) mg/dL Calcium 9.0 (8.4-10.2) mg/dL AST 26 (14-36) U/L ALT 26 (4-34) U/L Alkaline Phosphatase 105 (38-126) U/L Total Protein 6.7 (6.3-8.2) g/dL Albumin 4.3 (3.5-5.0) g/dL Calcium panel 06/24/25 Range/Units 15:45 Calcium 9.0 (8.4-10.2) mg/dL Albumin 4.3 (3.5-5.0) g/dL Pituitary panel 06/24/25 Range/Units 15:45 Sodium 141 (137-145) mmol/L Potassium 4.4 (3.5-5.1) mmol/L Chloride 106 (98-107) mmol/L Carbon Dioxide 30 (22-30) mmol/L BUN 21 H (7-17) mg/dL Creatinine 0.99 (0.52-1.04) mg/dL Glucose 104 H (74-99) mg/dL Calcium 9.0 (8.4-10.2) mg/dL Adrenal panel 06/24/25 Range/Units 15:45 Sodium 141 (137-145) mmol/L Potassium 4.4 (3.5-5.1) mmol/L Chloride 106 (98-107) mmol/L Carbon Dioxide 30 (22-30) mmol/L BUN 21 H (7-17) mg/dL Creatinine 0.99 (0.52-1.04) mg/dL Glucose 104 H (74-99) mg/dL Calcium 9.0 (8.4-10.2) mg/dL Total Bilirubin 0.5 (0.2-1.3) mg/dL AST 26 (14-36) U/L ALT 26 (4-34) U/L Alkaline Phosphatase 105 (38-126) U/L Total Protein 6.7 (6.3-8.2) g/dL Albumin 4.3 (3.5-5.0) g/dL - Imaging CT scan - abdomen: report reviewed, image reviewed Assessment and Plan (1) Calculus of ureter Current Visit: No Status: Acute Code(s): N20.1 - CALCULUS OF URETER SNOMED Code(s): 92160579 (2) Hydronephrosis with obstructing calculus Current Visit: Yes Status: Acute Code(s): N13.2 - HYDRONEPHROSIS WITH RENAL AND URETERAL CALCULOUS OBSTRUCTION SNOMED Code(s): 2162795417 Plan: I had a lengthy discussion with the patient regarding her left distal ureteral calculi. We discussed medical expulsion therapy, but she states that her discomfort has been going on for quite some time and she desires ureteroscopic removal of the calculi. I was able to schedule this to be done on June 27, 2025. She may be discharged home in the meantime and undergo the procedure as an outpatient if comfortable. Time with Patient: Greater than 30
[2025-06-25] MEDS: HYDROcodone/APAP 5-325MG 1 EACH TAB PO PRN (12:39)
[2025-06-25 12:48] VITALS: BP 125/71; PULSE 64; RESP 18; TEMP 98.4
--- NOTE | 2025-06-25 13:01 | P.DS ---
Providers Date of admission: 06/24/25 20:01 Expected date of discharge: 06/25/25 Attending physician: Antwan Medina Consults: 06/24/25 19:11 Consult Physician Urgent Consulting Provider: Darien Lehman Consult Reason/Comments: 3 obstructing calculus in left distal ureter Do you want consulting provider notified?: Yes Primary care physician: Antwan Medina Hospital Course: HISTORY OF PRESENT ILLNESS: This is a 75-year-old female patient of [employer] with a previous medical history significant for hypertension and hypertensive cardiovascular disease, mixed hyperlipidemia, recurrent kidney stones, with a prior history of J stent placement and removal, allergic rhinitis, diabetes mellitus type 2, migraine headache, osteoporosis, constipation, patient presented to the emergency department at [facility] with increased abdominal pain associated with intractable nausea vomiting, she was found to have an elevated lipase, ended up going for a CT scan of the abdomen pelvis that showed evidence of obstructing stones in the left ureter with mild to moderate hydronephrosis there is also an additional 5 mm stone inside the bladder and nonobstructing stone in the right kidney, there was also diverticulosis without diverticulitis, she was started on IV fluid resuscitation, IV analgesia with morphine sulfate 4 mg IV push every 4 hours as well as ketorolac as, and she was started on Flomax 0.4 mg once every day, urology consultation was obtained for cystoscopy and J stent placement and lithotripsy. 06/25: Patient was seen in consultation by Dr. Durbin who recommended for the patient to be discharged home and follow-up with him as an outpatient, she is scheduled to go for lithotripsy on morning, patient is feeling a lot better, her pain is well-controlled, she will be discharged home to follow-up with me as an outpatient next week and follow-up with him as an outpatient on . Discharge diagnoses: 1. Abdominal pain secondary to obstructing 3 stones of the left ureter with mild to moderate hydronephrosis. 2. Elevated lipase without evidence of significant pancreatitis discontinue GLP-1 receptor agonist. 3. Hypertension and hypertensive cardiovascular disease. 4. Mixed hyperlipidemia. 5. Diabetes mellitus type 2. 6. History of migraine headaches. 7. Major depressive disorder. 8. Allergic rhinitis. 9. Mitral regurgitation. 10. mild bilateral carotid artery disease ultrasound of the carotids is up-to-date it showed mild IMT. 11. Chronic low back pain with peripheral neuropathy. Patient Condition at Discharge: Stable Plan - Discharge Summary Discharge Rx Participant: No New Discharge Prescriptions: No Action Losartan [Cozaar] 50 mg PO DAILY Ezetimibe [Zetia] 10 mg PO DAILY Mirabegron [Myrbetriq] 25 mg PO HS Erenumab-Aooe [Aimovig Autoinjector] 140 mg SQ Q30D Ubrogepant [Ubrelvy] 100 mg PO BID PRN PRN Reason: Migraine Headache Sodium Fluoride 5000 Dry Mouth 1.1% Paste 1 applic PO BID Pregabalin [Lyrica] 75 mg PO BID Montelukast [Singulair] 10 mg PO DAILY Loratadine [Claritin] 10 mg PO HS Dulaglutide [Trulicity] 3 mg SQ ARIAS Venlafaxine HCl ER [Effexor Xr] 150 mg PO DAILY Atorvastatin [Lipitor] 40 mg PO DAILY EPINEPHrine (Auto Inject) [Epipen] 0.3 mg IM ONCE PRN PRN Reason: Anaphylaxis Discharge Medication List Loratadine [Claritin] 10 mg PO HS 04/21/21 [History] Montelukast [Singulair] 10 mg PO DAILY 04/21/21 [History] Atorvastatin [Lipitor] 40 mg PO DAILY 06/24/25 [History] Dulaglutide [Trulicity] 3 mg SQ ARIAS 06/24/25 [History] EPINEPHrine (Auto Inject) [Epipen] 0.3 mg IM ONCE PRN 06/24/25 [History] Erenumab-Aooe [Aimovig Autoinjector] 140 mg SQ Q30D 06/24/25 [History] Ezetimibe [Zetia] 10 mg PO DAILY 06/24/25 [History] Losartan [Cozaar] 50 mg PO DAILY 06/24/25 [History] Mirabegron [Myrbetriq] 25 mg PO HS 06/24/25 [History] Pregabalin [Lyrica] 75 mg PO BID 06/24/25 [History] Sodium Fluoride 5000 Dry Mouth 1.1% Paste 1 applic PO BID 06/24/25 [History] Ubrogepant [Ubrelvy] 100 mg PO BID PRN 06/24/25 [History] Venlafaxine HCl ER [Effexor Xr] 150 mg PO DAILY 06/24/25 [History] Follow up Appointment(s)/Referral(s): Antwan Medina MD [Primary Care Provider] - 1-2 days
== END 2025-06-25 13:41 | disposition home or self-care (01) ==
LOC: EC 14:53 → 5NMEDONC 20:01
PROVIDERS: ADMIT Internal Medicine; ATTEND Internal Medicine
DX: N13.2 Hydronephrosis with renal and ureteral calculous obstruction (principal); E11.40 Type 2 diabetes mellitus with diabetic neuropathy, unspecified; I11.9 Hypertensive heart disease without heart failure; E78.2 Mixed hyperlipidemia; R74.8 Abnormal levels of other serum enzymes; M81.0 Age-related osteoporosis without current pathological fracture; K57.30 Diverticulosis of large intestine without perforation or abscess without bleeding; G43.919 Migraine, unspecified, intractable, without status migrainosus; K59.00 Constipation, unspecified; I34.0 Nonrheumatic mitral (valve) insufficiency; J30.9 Allergic rhinitis, unspecified; G89.29 Other chronic pain; M54.50 Low back pain, unspecified; I77.89 Other specified disorders of arteries and arterioles; F32.9 Major depressive disorder, single episode, unspecified; E66.9 Obesity, unspecified; Z68.30 Body mass index [BMI] 30.0-30.9, adult; Z79.85 Long-term (current) use of injectable non-insulin antidiabetic drugs; Z79.899 Other long term (current) drug therapy; Z88.0 Allergy status to penicillin; Z88.1 Allergy status to other antibiotic agents; Z87.440 Personal history of urinary (tract) infections; Z87.442 Personal history of urinary calculi
CPT/HCPCS: 96376; 96361 ×2; 96375; 96374; 99285; 36415; 80053 ×2; 82150; 83605; 83690; 85025 ×2; 81001; 74177; G0378 ×2; J1885; Q9967; J2470

== ENCOUNTER 2025-06-27 12:48 | Day surgery (SDC) | payer MEDICARE ==
[2025-06-26 11:58] VITALS: BMI 30.7
[2025-06-27] MEDS: IV FLUID CONTINUATION 1,000 ML IV ONE ×2 (13:24→17:15)
[2025-06-27 13:50] LABS: Glucose,Whole Blood 87 mg/dL (70-110)
[2025-06-27] MEDS: LACTATED RINGERS 1,000 ML BAG IV STA (13:55)
[2025-06-27] MEDS: ONDANSETRON 4 MG/2 ML VIAL IVP STA (13:56)
[2025-06-27] MEDS: DEXAMETHASONE SOD PHOSPHATE 4 MG/ML 1 ML VIAL IVP STA (13:57)
[2025-06-27] MEDS ORDERED: PROPOFOL 10 MG/ML 20 ML VIAL IV ONE (15:34)
[2025-06-27] MEDS ORDERED: PHENYLEPHRINE 10 MG/ML VIAL ONE (15:34)
[2025-06-27] MEDS ORDERED: fentaNYL (PF) 50 MCG/ML 2 ML AMP ONE (15:34)
[2025-06-27] MEDS ORDERED: LIDOCAINE 1% INJ 10MG/ML (20 ML MDV) ONE (15:34)
--- NOTE | 2025-06-27 16:35 | P.OP ---
Date of Procedure: 06/27/25 Preoperative Diagnosis: Left ureteral calculi Postoperative Diagnosis: Same Procedure(s) Performed: Cystoscopy, left ureteroscopy with Holmium laser lithotripsy and stone basketing Anesthesia: TETE Surgeon: Darien Lehman Estimated Blood Loss (ml): 5 IV fluids (ml): 600 Pathology: other (Left ureteral calculus fragments, sent for chemical analysis) Condition: stable Disposition: PACU Indications for Procedure: The patient is a 75-year-old white female with a history of urolithiasis. She has recently experienced suprapubic pain. She presented to the ER and underwent evaluation which included a CT scan, revealing mild to moderate left hydroureteronephrosis due to 3 left distal ureteral calculi. She has elected to undergo ureteroscopic removal of the calculi. Operative Findings: 3 left distal ureteral calculi, 1 impacted at the UVJ. All 3 were successfully removed. Description of Procedure: The patient was taken to the operating room and placed in the dorsolithotomy position, with legs supported in Shaun stirrups. The external genitalia was prepped and draped sterilely. The 30 lens was used to introduce the 21-Azerbaijani Batres cystoscopic sheath through the urethra and into the bladder under direct vision. The bladder was examined in its entirety. The right ureteral orifice appeared normal. A calculus was impacted and at the left ureteral orifice. No tumors or foreign bodies were seen. The Batres semirigid ureteroscope was advanced into the bladder and the 272 micron Holmium laser probe was passed through the ureteroscope. Lithotripsy was performed, fragmenting the calculus impacted at the UVJ. A portion of the calculus refluxed into the ureter, and the ureteroscope was advanced to fragment the calculus. A second calculus was seen just proximal to this, and was also fragmented. After fragmenting these calculi, the ureteroscope was a third calculus was identified at the level of the iliac vessels. This calculus was also fragmented. The laser probe was removed, and a 1.9 Azerbaijani 0 tip nitinol basket was passed through the ureteroscope. This was used to remove all calculus fragments from the ureter. Inspection of the ureter was then performed. There was no evidence of ureteral trauma. Mild edema was noted where the calculus had been impacted at the level of the iliac vessels, but this was not felt to warrant stent placement as the primary obstruction was clearly the UVJ calculus, as the ureter proximal to this was dilated. After removing the ureteroscope, the cystoscope was replaced into the bladder. Calculus fragments were removed through the cystoscope, and sent for chemical analysis. The bladder was emptied and the cystoscope removed. The patient tolerated the procedure well and was taken to the recovery room in stable condition. CLARA SALMON Report: Procedure Acuity: Urgent Stone Size and Location: 6 mm, left UVJ Ureteral Dilation: No Ureteral Access Sheath Used: No Stone Sent for Analysis: Yes All Stones/Fragments Were Removed with a Basket: Yes Complications: No Preoperative Antibiotics Given: Yes Stent Placed: No Discharge Medications: None
[2025-06-27 17:28] VITALS: TEMP 97
[2025-06-27 17:30] VITALS: RESP 14
[2025-06-27 17:36] LABS: Glucose,Whole Blood 107 mg/dL (70-110)
[2025-06-27 17:44] VITALS: BP 133/81; PULSE 75
== END 2025-06-27 17:54 | disposition home or self-care (01) ==
LOC: OR 12:48
PROVIDERS: ATTEND Urology
DX: N13.2 Hydronephrosis with renal and ureteral calculous obstruction (principal); I10 Essential (primary) hypertension; E11.9 Type 2 diabetes mellitus without complications; E78.5 Hyperlipidemia, unspecified; M81.0 Age-related osteoporosis without current pathological fracture; F41.9 Anxiety disorder, unspecified; F32.A Depression, unspecified; Z91.89 Other specified personal risk factors, not elsewhere classified; Z79.85 Long-term (current) use of injectable non-insulin antidiabetic drugs; Z79.899 Other long term (current) drug therapy; Z88.8 Allergy status to other drugs, medicaments and biological substances
CPT/HCPCS: 82365; 52353; J1100; J0690; J2405